=== PATIENT | female | born 1955 | race Asian ===

== ENCOUNTER 2019-06-13 20:15 | Inpatient (IN) | payer MEDICARE, MEDICAID ==
[~2019-06-13] VITALS: Ht 152.4 cm; Wt 61.7 kg
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
[2019-06-13 21:08] LABS: BASO % 0 % (0-3); EOS # 0.2 x10^3/uL (0.0-0.7); EOS % 2 % (0-3); HEMATOCRIT 39.3 % (36.0-47.0); HEMOGLOBIN 12.4 g/dL (12.0-15.5); LYMPH # 2.9 x10^3/uL (1.0-4.8); LYMPH % 28 % (24-48); MEAN CORPUSCULAR HEMOGLOBIN 26 pg (25-35); MEAN CORPUSCULAR HGB CONC 32 g/dL (31-37); MEAN CORPUSCULAR VOLUME 81 fL (79-100); MONO # 0.7 x10^3/uL (0.0-1.1); MONO % 6 % (0-9); NEUT # 6.5 x10^3uL (1.8-7.7); NEUT % 64 % (31-73); PLATELET COUNT 239 x10^3/uL (140-400); RED BLOOD COUNT 4.87 x10^6/uL (3.50-5.40); RED CELL DISTRIBUTION WIDTH 14.9 % (11.5-14.5); WHITE BLOOD COUNT 10.3 x10^3/uL (4.0-11.0)
[2019-06-13 21:26] LABS: ALBUMIN 3.5 g/dL (3.4-5.0); CALCIUM 8.9 mg/dL (8.5-10.1); CREATININE 0.7 mg/dL (0.6-1.0); GFR 84.2; MAGNESIUM 1.6 mg/dL (1.8-2.4); POTASSIUM 4.4 mmol/L (3.5-5.1); TOTAL BILIRUBIN 0.1 mg/dL (0.2-1.0); TOTAL PROTEIN 6.9 g/dL (6.4-8.2)
[2019-06-13 22:40] LABS: CLARITY,URINE HAZY; COLOR,URINE YELLOW; GLUCOSE,URINE NEG (NEG)
[2019-06-13 22:41] LABS: BACTERIA,URINE FEW /HPF (0-FEW); BILIRUBIN,URINE NEG (NEG); NITRITE,URINE NEG (NEG); RBC,URINE OCC /HPF (0-2); SQUAMOUS EPITHELIAL CELL,UR MOD /LPF; UROBILINOGEN,URINE 0.2 mg/dL (0.2 mg/dL)
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
[2019-06-14 00:23] VITALS: BP 135/91
[2019-06-14] MEDS ORDERED: METHYL SALICYLATE/MENTHOL TOPICAL OINTMENT 57GM TUBE. TP PRN (00:45)
[2019-06-14] MEDS ORDERED: MAG HYDROX/AL HYDROX/SIMETH 30 ML ORAL.SUSP PO PRN (00:45)
[2019-06-14] MEDS ORDERED: MAGNESIUM HYDROXIDE 2,400 MG/30 ML ORAL.SUSP. PO PRN (00:45)
[2019-06-14] MEDS ORDERED: SENNOSIDES/DOCUSATE 8.6/50MG TABLET. PO PRN (00:45)
[2019-06-14] MEDS ORDERED: BISACODYL TAB 5 MG TABLET.DR. PO PRN (00:45)
[2019-06-14] MEDS ORDERED: BISACODYL 10 MG SUPP.RECT RC PRN (00:45)
[2019-06-14] MEDS ORDERED: BISA5TAB4 PO (00:52)
[2019-06-14] MEDS ORDERED: TAMO20TA PO (00:52)
[2019-06-14] MEDS ORDERED: SERT50TA PO (00:52)
[2019-06-14] MEDS ORDERED: BISA10SU4 RC (00:52)
[2019-06-14] MEDS ORDERED: HYDR-2145 PO (00:52)
[2019-06-14] MEDS ORDERED: LISI40TA PO (00:52)
[2019-06-14] MEDS ORDERED: IBUP400T18 PO (00:52)
[2019-06-14] MEDS ORDERED: LATA2.5D3 RIGHTEYE (00:52)
[2019-06-14] MEDS ORDERED: SENN-142 PO (00:52)
[2019-06-14] MEDS ORDERED: AMLO5TAB10 PO (00:52)
[2019-06-14] MEDS ORDERED: ATOR10TA PO (00:52)
[2019-06-14] MEDS ORDERED: METF500T16 PO (00:52)
[2019-06-14] MEDS ORDERED: METO25TA2 PO (00:52)
[2019-06-14 05:48] VITALS: BP 137/84
[2019-06-14] MEDS: LISINOPRIL 20 MG TABLET PO SCH (08:38)
[2019-06-14] MEDS: SERTRALINE 25 MG TABLET. PO SCH (08:38)
[2019-06-14] MEDS: metFORMIN 500 MG TABLET PO SCH ×2 (08:38→17:31)
[2019-06-14] MEDS: amLODIPine BESYLATE 5 MG TABLET PO SCH (08:39)
[2019-06-14] MEDS: hydroCHLOROthiazide 25 MG TABLET PO SCH (08:39)
[2019-06-14] MEDS: METOPROLOL SUCC 24HR ER 25 MG TAB.ER.24H. PO SCH (08:39)
[2019-06-14] MEDS: TAMOXIFEN 10 MG TABLET PO SCH (09:14)
--- NOTE | 2019-06-14 10:53 | NUR ---
NURSING NOTES: Increased agitation and name calling with staff noted. Dr. Curiel called, received new order for Zyprexa PO 2.5mg PRN Q2h for psychosis and agitation. Not to exceed 10mg in 24 hours.
[2019-06-14] MEDS ORDERED: OLANZapine 2.5 MG TABLET PO PRN (11:00)
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
--- NOTE | 2019-06-14 15:11 | NUR ---
NURSING NOTE: PATIENT IN DINING ROOM AT TIME OF AM ASSESSMENT. PATIENT ALERT AND ORIENTED SELF ONLY, SPEECH CLEAR, ABLE TO MAKE NEEDS KNOWN. LCTA. PATIENT ON ROOM AIR. NO COUGH NOTED. BS ACTIVE X4 QUADRANTS. LAST BM: 06/13. PATIENT OFFERED NO COMPLAINTS. MEDICATIONS GIVEN WHOLE, TOLERATED WELL. MEDICATION COMPLIANT. BEHAVIORS NOTED IN PREVIOUS NOTE. WILL CONTINUE TO MONITOR.
[2019-06-14 16:09] VITALS: BP 73/61
--- NOTE | 2019-06-14 17:13 | NUR ---
NURSING NOTES: THIS NURSE SPOKE WITH DR. TSEPHENSON TODAY ABOUT PATIENT BEHAVIORS AND SLEEPING ABILITIES. NEW ORDERS RECEIVED FOR TRAZADONE 50MG HS WITH REPEAT X1. NO FURTHER CONCERNS AT THIS TIME. WILL CONTINUE TO MONITOR.
[2019-06-14] MEDS ORDERED: traZODone 50 MG TABLET. PO PRN (17:30)
[2019-06-14 19:40] VITALS: BP 99/62
[2019-06-14] MEDS: LATANOPROST 0.005% OPHTH SOLUTION 2.5ML BOTTLE. OD SCH (21:00)
[2019-06-14] MEDS: IBUPROFEN 400 MG TABLET. PO PRN (21:17)
[2019-06-14] MEDS: ATORVASTATIN CALCIUM 10 MG TABLET. PO SCH (21:17)
[2019-06-14] MEDS: traZODone 50 MG TABLET. PO SCH (21:17)
--- NOTE | 2019-06-14 21:25 | PDOC ---
Exam Note: Phillip Note: Please also refer to the separate dictated note~for this date of service dictated separately. Discussed the patient with Nursing staff reviewed the chart.~Reviewed interim history and current functioning. Reviewed vital signs,~Labs/ Radiology~and current medications noted below. Continue current treatment with the changes noted in the dictated addendum note Assessment: Vital Signs/I&O: Vital Signs Date Time Temp Pulse Resp B/P (MAP) Pulse Ox O2 Delivery O2 Flow Rate FiO2 06/14/19 19:40 92 20 99/62 (74) 98 06/14/19 16:09 97.2 06/13/19 20:30 Room Air I & O 06/13/19 06/13/19 06/14/19 15:00 23:00 07:00 Intake Total 0 ml Balance 0 ml Labs: Laboratory Tests Test 06/13/19 22:03 06/14/19 07:49 06/14/19 12:00 06/14/19 16:57 Urine Collection Type Unknown Urine Color Yellow Urine Clarity Hazy Urine pH 5.5 Urine Specific [place] 1.020 Urine Protein Neg (NEG-TRACE) Urine Glucose (UA) Neg mg/dL (NEG) Urine Ketones (Stick) Neg mg/dL (NEG) Urine Blood Neg (NEG) Urine Nitrite Neg (NEG) Urine Bilirubin Neg (NEG) Urine Urobilinogen Dipstick 0.2 mg/dL (0.2 mg/dL) Urine Leukocyte Esterase Neg (NEG) Urine RBC Occ /HPF (0-2) Urine WBC 1-4 /HPF (0-4) Urine Squamous Epithelial Cells Mod /LPF Urine Transitional Epithelial Cells Few /LPF Urine Bacteria Few /HPF (0-FEW) Glucose (Fingerstick) 148 mg/dL (70-99) H 142 mg/dL (70-99) H 144 mg/dL (70-99) H Current Medications: Meds: Current Medications Medications (Trade) Dose Ordered Sig/Antoinette Route PRN Reason Start Time Stop Time Status Last Admin Dose Admin Amlodipine Besylate (Norvasc) 5 mg DAILY PO 06/14/19 09:00 06/14/19 08:39 Atorvastatin Calcium (Lipitor) 10 mg HS PO 06/14/19 21:00 06/14/19 21:17 Hydrochlorothiazide (Hydrodiuril) 25 mg DAILY PO 06/14/19 09:00 06/14/19 08:39 Ibuprofen (Motrin) 400 mg PRN Q8HRS PRN PO PAIN 06/14/19 00:45 06/14/19 21:17 Metformin HCl (Glucophage) 500 mg BIDWMEALS PO 06/14/19 08:00 06/14/19 17:31 Metoprolol Succinate (Toprol Xl) 25 mg DAILY PO 06/14/19 09:00 06/14/19 08:39 Sertraline HCl (Zoloft) 75 mg DAILY PO 06/14/19 09:00 06/14/19 08:38 Lisinopril (Prinivil) 40 mg DAILY PO 06/14/19 09:00 06/14/19 08:38 Tamoxifen Citrate (Nolvadex) 20 mg DAILY PO 06/14/19 09:00 06/14/19 09:14 Olanzapine (ZyPREXA) 2.5 mg PRN Q2HR PRN PO psychosis, agitation 06/14/19 11:00 06/14/19 11:02 Trazodone HCl (Desyrel) 50 mg QHS PO 06/14/19 21:00 06/14/19 21:17 I have reviewed the current psychotropics carefully including drug interactions. Risk benefit ratio favors no change other than as noted in my dictated progress note. 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
--- NOTE | 2019-06-14 23:52 | NUR ---
Pt has been wandering around the unit propelling herself in her wheelchair. Pt calm and compliant with HS medications. Pt stated leg pain 11/28. PRN Ibuprofen administered. A/O name, and date. At 2350, pt woke up to use the restroom. Pt very non compliant with transferring, refusing to stand with 2 person assist and attempting to put herself on the floor. Pt currently laying in bed. Will continue to monitor.
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
[2019-06-15 05:54] VITALS: BP 97/62
[2019-06-15 06:51] LABS: BASO # 0.1 x10^3/uL (0.0-0.2); BASO % 1 % (0-3); EOS # 0.2 x10^3/uL (0.0-0.7); EOS % 2 % (0-3); HEMATOCRIT 36.9 % (36.0-47.0); HEMOGLOBIN 11.6 g/dL (12.0-15.5); LYMPH # 2.9 x10^3/uL (1.0-4.8); LYMPH % 32 % (24-48); MEAN CORPUSCULAR HEMOGLOBIN 25 pg (25-35); MEAN CORPUSCULAR HGB CONC 31 g/dL (31-37); MEAN CORPUSCULAR VOLUME 81 fL (79-100); MONO # 0.6 x10^3/uL (0.0-1.1); MONO % 6 % (0-9); NEUT # 5.3 x10^3uL (1.8-7.7); NEUT % 59 % (31-73); PLATELET COUNT 213 x10^3/uL (140-400); RED BLOOD COUNT 4.57 x10^6/uL (3.50-5.40); RED CELL DISTRIBUTION WIDTH 14.8 % (11.5-14.5); WHITE BLOOD COUNT 9.1 x10^3/uL (4.0-11.0)
[2019-06-15 07:07] LABS: ALBUMIN 3.1 g/dL (3.4-5.0); CALCIUM 8.4 mg/dL (8.5-10.1); CREATININE 0.8 mg/dL (0.6-1.0); GFR 72.2; POTASSIUM 4.1 mmol/L (3.5-5.1); TOTAL BILIRUBIN 0.2 mg/dL (0.2-1.0); TOTAL PROTEIN 6.3 g/dL (6.4-8.2)
[2019-06-15] MEDS: SERTRALINE 25 MG TABLET. PO SCH (09:56)
[2019-06-15] MEDS: LISINOPRIL 20 MG TABLET PO SCH (09:56)
[2019-06-15] MEDS: hydroCHLOROthiazide 25 MG TABLET PO SCH (09:57)
[2019-06-15] MEDS: amLODIPine BESYLATE 5 MG TABLET PO SCH (09:57)
[2019-06-15] MEDS: METOPROLOL SUCC 24HR ER 25 MG TAB.ER.24H. PO SCH (09:57)
[2019-06-15] MEDS: TAMOXIFEN 10 MG TABLET PO SCH (09:59)
[2019-06-15] MEDS: metFORMIN 500 MG TABLET PO SCH ×2 (10:01→17:34)
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
--- NOTE | 2019-06-15 14:35 | RAD ---
EXAM: CT Head without IV contrast INDICATION: Altered mental status. Patient is not sure when or why she had surgery. TECHNIQUE: Multi-detector row CT images were obtained of the head without the use of IV contrast. All CT scans performed at this facility utilize dose optimization techniques as appropriate to the exam, including the following: Automated exposure control and adjustment of the mA and/or KV according to patient size (this includes techniques or standardized protocols for targeted exams where dose is indication/reason for exam). COMPARISON: None available FINDINGS: BRAIN PARENCHYMA: Encephalomalacia in the right temporal lobe and in the inferior left temporal lobe are present in the setting of generalized parenchymal volume loss and white matter low density compatible chronic ischemic microvascular change, most conspicuous in the right frontal lobe. No acute hemorrhage, evidence of an acute infarct or mass lesion/mass effect. There does appear to be a left through the right temporal lobe and stenting to the lateral horn right lateral ventricle that may have tsang matter along its margins. 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 VENTRICLES & EXTRA-AXIAL SPACES: Ventricles are enlarged in proportion to the degree of parenchymal volume loss on the right parietal approach ventriculostomy catheter is present, crossing midline to abut the left tsang nuclei near the caudothalamic groove. Basilar cisterns are patent. A left frontal 5 mm deep isodense fluid collection over the left frontal lobe is present, compatible with a subacute subdural hematoma. ORBITS: Orbital contents are unremarkable. SINUSES: Visualized paranasal sinuses and mastoid air cells are clear. OSSEOUS & SOFT TISSUES: There are surgical changes from a right pterional craniotomy with surgical material present along the right sphenoid wing lateral to the cavernous carotid artery. IMPRESSION: Extensive postoperative changes intracranially compatible with prior tissue debulking in the right anterior temporal lobe and placement of a [employer] shunt catheter. There is a small, 5 mm deep left frontal subacute subdural hematoma. No significant mass effect and no acute intracranial findings otherwise noted. Electronically signed by: Susan Robbins MD (06/15/2019 2:32 PM) [facility]
[2019-06-15 14:52] LABS: THYROID STIM HORMONE (TSH) 1.255 uIU/mL (0.358-3.740)
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
[2019-06-15 16:26] VITALS: BP 88/53
--- NOTE | 2019-06-15 17:05 | NUR ---
Patient has been cooperative and compliant with her medications. This morning she became upset because she stated her hair was "dripping wet". She had just had a shower. Nurse dried patients hair with a towel, patient continued to insist that it was "dripping wet". Hair was not dripping wet. Patient continued to insist, eventually nurse asked PV INSTALLER TECH to blow-dry patients hair. Patient was then upset that her hair was "blowing around". Patient interactive with staff and peers. She has had no combative behaviors or name calling towards peers or staff.
--- NOTE | 2019-06-15 19:48 | NUR ---
nurse called patients ANTONIETTAPAOLO Haile at [phone] Curiel. 1. Did patients bi-polar episodes/diagnosis start before or after her nontraumatic subarachnoid hemorrhage? 2. When did the nontraumatic subarachnoid hemorrhage happen? (year) KILEY did not answer the phone, message was left asking her to call this nurse on Friday between 7am-7pm.
[2019-06-15] MEDS: HYDROCORTISONE 1% LOTION BOTTLE. TP SCH (20:48)
[2019-06-15] MEDS: ATORVASTATIN CALCIUM 10 MG TABLET. PO SCH (20:49)
[2019-06-15] MEDS: traZODone 50 MG TABLET. PO SCH (20:49)
[2019-06-15] MEDS: LATANOPROST 0.005% OPHTH SOLUTION 2.5ML BOTTLE. OD SCH (21:00)
--- NOTE | 2019-06-15 21:21 | PDOC ---
Exam Note: Phillip Note: Please also refer to the separate dictated note~for this date of service dictated separately.~Patient seen individually. Discussed the patient with Nursing staff reviewed the chart.~Reviewed interim history and current functioning. Reviewed vital signs,~Labs/ Radiology~and current medications noted below. Continue current treatment with the changes noted in the dictated addendum note Assessment: Vital Signs/I&O: Vital Signs Date Time Temp Pulse Resp B/P (MAP) Pulse Ox O2 Delivery O2 Flow Rate FiO2 06/15/19 16:26 97.5 94 16 88/53 (65) 95 06/13/19 20:30 Room Air I & O 06/14/19 06/14/19 06/15/19 15:00 23:00 07:00 Intake Total 840 ml 360 ml 120 ml Balance 840 ml 360 ml 120 ml Labs: Laboratory Tests Test 06/15/19 06:30 White Blood Count 9.1 x10^3/uL (4.0-11.0) Red Blood Count 4.57 x10^6/uL (3.50-5.40) Hemoglobin 11.6 g/dL (12.0-15.5) L Hematocrit 36.9 % (36.0-47.0) Mean Corpuscular Volume 81 fL (79-100) Mean Corpuscular Hemoglobin 25 pg (25-35) Mean Corpuscular Hemoglobin Concent 31 g/dL (31-37) Red Cell Distribution Width 14.8 % (11.5-14.5) H Platelet Count 213 x10^3/uL (140-400) Neutrophils (%) (Auto) 59 % (31-73) Lymphocytes (%) (Auto) 32 % (24-48) Monocytes (%) (Auto) 6 % (0-9) Eosinophils (%) (Auto) 2 % (0-3) Basophils (%) (Auto) 1 % (0-3) Neutrophils # (Auto) 5.3 x10^3uL (1.8-7.7) Lymphocytes # (Auto) 2.9 x10^3/uL (1.0-4.8) Monocytes # (Auto) 0.6 x10^3/uL (0.0-1.1) Eosinophils # (Auto) 0.2 x10^3/uL (0.0-0.7) Basophils # (Auto) 0.1 x10^3/uL (0.0-0.2) Sodium Level 141 mmol/L (136-145) Potassium Level 4.1 mmol/L (3.5-5.1) Chloride Level 105 mmol/L (98-107) Carbon Dioxide Level 27 mmol/L (21-32) Anion Gap 9 (6-14) Blood Urea Nitrogen 26 mg/dL (7-20) H Creatinine 0.8 mg/dL (0.6-1.0) Estimated GFR (Cockcroft-Gault) 72.2 BUN/Creatinine Ratio 33 (6-20) H Glucose Level 144 mg/dL (70-99) H Calcium Level 8.4 mg/dL (8.5-10.1) L Iron Level 46 ug/dL (50-170) L Total Iron Binding Capacity 356 ug/dL (250-450) Iron Saturation 13 % (15-34) L Total Bilirubin 0.2 mg/dL (0.2-1.0) Aspartate Amino Transferase (AST) 17 U/L (15-37) Alanine Aminotransferase (ALT) 27 U/L (14-59) Alkaline Phosphatase 56 U/L (46-116) Total Protein 6.3 g/dL (6.4-8.2) L Albumin 3.1 g/dL (3.4-5.0) L Albumin/Globulin Ratio 1.0 (1.0-1.7) Triglycerides Level 101 mg/dL (0-150) Cholesterol Level 113 mg/dL (0-200) LDL Cholesterol, Calculated 53 mg/dL (0-100) VLDL Cholesterol, Calculated 20 mg/dL (0-40) Non-HDL Cholesterol Calculated 73 mg/dL (0-129) HDL Cholesterol 40 mg/dL (40-60) Cholesterol/HDL Ratio 2.0 Vitamin B12 Level 215 pg/mL (247-911) L 25-Hydroxy Vitamin D Total 13.5 ng/mL (30-100) L Thyroid Stimulating Hormone (TSH) 1.255 uIU/mL (0.358-3.740) Treponema pallidum Antibody Nonreactive (Nonreactive) Current Medications: Meds: Current Medications Medications (Trade) Dose Ordered Sig/Antoinette Route PRN Reason Start Time Stop Time Status Last Admin Dose Admin Hydrocortisone (Cortizone-10) 1 ismael TID TP 06/15/19 21:00 06/15/19 20:48 I have reviewed the current psychotropics carefully including drug interactions. Risk benefit ratio favors no change other than as noted in my dictated progress note. 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
--- NOTE | 2019-06-15 22:22 | EKG ---
[address] [address] Test Date: 2019-06-15 Test Time: 22:01:50 Pat Name: KIMANI LIN Department: Room: Gender: F Leasing Consultant: : 1955 Requested By: ZE TAVERAS Order Number: [id number] Reading MD: Measurements Intervals [place] Rate: 91 P: 51 SC: 150 QRS: 27 QRSD: 82 T: 103 QT: 374 QTc: 462 Interpretive Statements SINUS RHYTHM ST & T ABNORMALITY, CONSIDER HIGH LATERAL ISCHEMIA OR LEFT VENTRICULAR STRAIN ABNORMAL ECG RI6.02 No previous ECG available for comparison
[2019-06-15 23:06] LABS: THYROXINE 6.1 ug/dL (4.5-12.0)
--- NOTE | 2019-06-16 00:06 | NUR ---
Nursing Note the patient was located in the day room and hallways for her assessment and medication pass. The patient was often very disorganized but was generally compliant. The patient took her medication whole. The patient is currently sleeping in her room.
[2019-06-16 01:06] LABS: HEMOGLOBIN A1C 7.8 % (4.8-5.6)
[2019-06-16 05:44] VITALS: BP 105/72
[2019-06-16] MEDS: METOPROLOL SUCC 24HR ER 25 MG TAB.ER.24H. PO SCH (09:41)
[2019-06-16] MEDS: SERTRALINE 25 MG TABLET. PO SCH (09:42)
[2019-06-16] MEDS: hydroCHLOROthiazide 25 MG TABLET PO SCH (09:42)
[2019-06-16] MEDS: TAMOXIFEN 10 MG TABLET PO SCH (09:42)
[2019-06-16] MEDS: HYDROCORTISONE 1% LOTION BOTTLE. TP SCH ×3 (09:43→21:02)
[2019-06-16] MEDS: amLODIPine BESYLATE 5 MG TABLET PO SCH (09:43)
[2019-06-16] MEDS: LISINOPRIL 20 MG TABLET PO SCH (09:43)
[2019-06-16] MEDS: metFORMIN 500 MG TABLET PO SCH ×2 (09:43→17:24)
--- NOTE | 2019-06-16 12:27 | NUR ---
Patient had returned to bed after breakfast. She refused to sit up to take medications. Nurse put the bed into an upright/chair position. Patient was angry but took her medications. Patient has not been aggressive towards peers or staff. Patient got up for lunch and appeared to be in a better mood at that time.
--- NOTE | 2019-06-16 15:23 | NUR ---
Activity Therapy Assessment Completed based on observation, notes, and discussions with staff; Pt. sleeping during both attempts to assess (1000 and 1445). Pt. uses a wheelchair to ambulate and requires assistance with ADLs and transfers. Pt. speaks in full, clear sentences and is able to express her needs clearly. Pt. is from [facility] where she lives alone; her sister in law, Royce, is her DPOA. Pt. is originally from [place] and moved to [place] with her , who a few years ago. Pt. has a history of strokes, polio, and was in a coma for many months a few years back. Pt. 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 Pt. enjoys reading, watching TV- specifically drama programs, and cooking. Pt. sees her nieces (Jessica and Lisandra) often as well as her tntxlz-be-bfw. Pt. is disorganized, aware that she is not home but seems confused on where she is and is unable to communicate what brought her to the unit. Pt. oysterman memory is mostly in tact but her short term is limited. Pt. benefits from reminders and redirection often. Pt. has been demanding of staff since admission and difficult to redirect at times. Pt. has also been resistant to cares and meds at times. Pt. is sleepy often and therefore around group only a few times. Pt. has participated well in one group thus far and demonstrated she is able to follow directions and engage in group activities. Initial goal aimed to increase engagement and socialization: Pt. will participate in three Activity Therapy groups per week.
[2019-06-16 16:13] VITALS: BP 90/51
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
[2019-06-16] MEDS: DIVALPROEX 125 MG CAP.SPRINK PO SCH (17:27)
[2019-06-16] MEDS: traZODone 50 MG TABLET. PO SCH (20:57)
[2019-06-16] MEDS: ATORVASTATIN CALCIUM 10 MG TABLET. PO SCH (20:57)
[2019-06-16] MEDS: LATANOPROST 0.005% OPHTH SOLUTION 2.5ML BOTTLE. OD SCH (21:00)
--- NOTE | 2019-06-16 21:21 | PDOC ---
Exam Note: Phillip Note: Please also refer to the separate dictated note~for this date of service dictated separately.~Patient seen individually. Discussed the patient with Nursing staff reviewed the chart.~Reviewed interim history and current functioning. Reviewed vital signs,~Labs/ Radiology~and current medications noted below. Continue current treatment with the changes noted in the dictated addendum note Assessment: Vital Signs/I&O: Vital Signs Date Time Temp Pulse Resp B/P (MAP) Pulse Ox O2 Delivery O2 Flow Rate FiO2 06/16/19 16:13 98.6 91 16 90/51 (64) 94 06/13/19 20:30 Room Air I & O 06/15/19 06/15/19 06/16/19 15:00 23:00 07:00 Intake Total 720 ml 480 ml 240 ml Balance 720 ml 480 ml 240 ml Labs: Laboratory Tests Test 06/16/19 07:18 Glucose (Fingerstick) 128 mg/dL (70-99) H Current Medications: Meds: Current Medications Medications (Trade) Dose Ordered Sig/Antoinette Route PRN Reason Start Time Stop Time Status Last Admin Dose Admin Divalproex Sodium (Depakote Sprinkles) 125 mg BID@0900,1700 PO 06/16/19 18:00 06/16/19 17:27 I have reviewed the current psychotropics carefully including drug interactions. Risk benefit ratio favors no change other than as noted in my dictated progress note. 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
--- NOTE | 2019-06-16 21:54 | PN ---
DATE: 06/15/2019 PSYCHIATRIC PROGRESS NOTE This late entry, 06/15, covers the elements not covered in my initial note. SUBJECTIVE: I met with the patient on the evening of 06/15. Per MARISOL Dick, the patient slept 4 hours previous night. She has been quite obsessive about her hair being wet using a blower and then frustrated about this after shower. A CT head shows encephalomalacia right temporal lobe, inferior left temporal lobe and generalized parenchymal volume loss, white matter low density compatible chronic ischemic microvascular changes most conspicuous in the right frontal lobe. No acute hemorrhage or acute infarct or mass lesion noted. There does appear to be a left through the right temporal lobe and stenting to the lateral horn right lateral ventricle may have tsang matter along its margins. 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 Ventricles are enlarged and there is a ventriculostomy catheter present crossing the midline and there is a possible subacute subdural hematoma, left frontal 5 mm deep. Surgical changes from a right craniotomy, overall extensive postoperative changes compatible with prior tissue debulking in the right anterior temporal lobe placement of MANAGER FOOD SAFETY shunt and a subacute subdural hematoma. I reviewed the patient's history with her at length. She denies any premorbid psychiatric symptoms of bipolar disorder, but we will have to gather further historical information from her family. She states her family is in [facility] that is where she was born and raised and then at age 18 she came over to the . Apparently, there is a xkabyb-xa-kwd in [place] at least that is what the intake paper said and the patient deny she has any relative in [place]. She does have some cognitive deficits, but is more oriented than was evident initially. REVIEW OF SYSTEMS: Ambulation impaired, in wheelchair. No CV, , pulmonary, eye systems symptoms on review. MENTAL STATUS EXAM: Oriented to herself, situation. Speech has some latency, a little rapid at times. Poor social skills consistent with a frontal lobe damage. Abstraction fair, computation impaired, language function intact, attention span short. Mood and affect somewhat labile. LABORATORY DATA: Reviewed. IMPRESSION: Major neurocognitive disorder, early multifactorial with predominant frontal lobe deficits; impulse control disorder, history of bipolar disorder, unspecified; anxiety disorder, unspecified. Rest unchanged. PLAN: From a psychiatric standpoint, we will continue Zoloft 75 mg a day. She is on trazodone and Zyprexa p.r.n. We need to gather further historical information about bipolar disorder and if this is evident, may consider treatment on Depakote as a mood stabilizer, which should help her impulse control as well. MAN Darby STEPHENSON MD DR: JORDAN/ember JOB#: [id number] / [id number]
--- NOTE | 2019-06-17 04:35 | NUR ---
Last evening pt was active on unit and social with peers and staff. She took her meds whole without difficulty and has been peasant and cooperative. Since going to bed she has slept well. No behaviors this shift.
[2019-06-17 05:42] VITALS: BP 109/74
[2019-06-17] MEDS: HYDROCORTISONE 1% LOTION BOTTLE. TP SCH ×3 (06:00→20:31)
[2019-06-17] MEDS: metFORMIN 500 MG TABLET PO SCH ×2 (08:17→17:52)
[2019-06-17] MEDS: DIVALPROEX 125 MG CAP.SPRINK PO SCH ×2 (08:17→17:52)
[2019-06-17] MEDS: METOPROLOL SUCC 24HR ER 25 MG TAB.ER.24H. PO SCH (08:17)
[2019-06-17] MEDS: hydroCHLOROthiazide 25 MG TABLET PO SCH (08:17)
[2019-06-17] MEDS: LISINOPRIL 20 MG TABLET PO SCH (08:18)
[2019-06-17] MEDS: amLODIPine BESYLATE 5 MG TABLET PO SCH (08:18)
[2019-06-17] MEDS: SERTRALINE 25 MG TABLET. PO SCH (08:18)
[2019-06-17] MEDS: TAMOXIFEN 10 MG TABLET PO SCH (08:20)
[2019-06-17] MEDS: NYSTATIN TOPICAL POWDER 15GM BOTTLE. TP SCH ×2 (09:42→20:31)
--- NOTE | 2019-06-17 10:52 | NUR ---
WEEKLY ACTIVITY THERAPY NOTE Date of Admission: 06/13/2019 Date of AT Assessment: 06/16/2019 Goal aimed: to increase engagement and socialization Initial goal: Pt. will participate in three Activity Therapy groups per week. Weekly progress towards goal: goal evaluation begins next week Group participation level: 2 mod Weekly highlights: exercise and picture puzzles Friday morning and leisure discussion Friday afternoon Behaviors observed: sleepy, demanding of staff, limited group engagement- no participation Friday and Friday, wandering/ leaves group and does not return Plan: no change to goal Beneficial adaptations: direct prompting
--- NOTE | 2019-06-17 11:09 | NUR ---
LUPE contacted pt. hxpvik-pt-wdr, Royce, for treatment team. LUPE updated INDIRA Meléndez at [facility], on pt. progress and tentative discharge for the end of next week.
--- NOTE | 2019-06-17 15:45 | NUR ---
Patient can be very demanding when she does not get what she wants. At breakfast she was compliant with her medications. She spilled her coffee and nurse wiped the table off. Patient then asked for a napkin as she had used hers to clean up part of the coffee. Nurse brought patient several paper towels from the wall dispenser. Nurse then turned attention back to peer that was being assessed. Patient then flagged down Alla, the cloth shrinker, stating that the paper towels were not soft. Alla got some more paper towels for patient and wet them so they would be softer. Patient was not happy with that either and told Alla that our towels are too rough. She demanded a new napkin and was informed that we do not have extra napkins in the dining room, just the ones that come on the trays. In the day room BEREAVEMENT COUNSELOR's asked patient if she was ready to take her shower. Patient became very angry and indignent and stated that she WOULD NOT be washing her hair IF she took a shower. She then called the BEREAVEMENT COUNSELOR's "swine" and "bloody idiots". She eventually calmed down and took a shower but refused to wash her hair. By lunch time she was in a better mood. Patient uses a wheel chair to ambulate. Patient is a 2 person transfer.
[2019-06-17 15:51] VITALS: BP 100/63
[2019-06-17] MEDS: ATORVASTATIN CALCIUM 10 MG TABLET. PO SCH (20:30)
[2019-06-17] MEDS: traZODone 50 MG TABLET. PO SCH (20:30)
[2019-06-17] MEDS: LATANOPROST 0.005% OPHTH SOLUTION 2.5ML BOTTLE. OD SCH (20:31)
--- NOTE | 2019-06-17 21:25 | PDOC ---
Exam Note: Phillip Note: Please also refer to the separate dictated note~for this date of service dictated separately.~Patient seen individually. Discussed the patient with Nursing staff reviewed the chart.~Reviewed interim history and current functioning. Reviewed vital signs,~Labs/ Radiology~and current medications noted below. Continue current treatment with the changes noted in the dictated addendum note Assessment: Vital Signs/I&O: Vital Signs Date Time Temp Pulse Resp B/P (MAP) Pulse Ox O2 Delivery O2 Flow Rate FiO2 06/17/19 15:51 97.4 81 18 100/63 (75) 98 06/17/19 05:42 Room Air I & O 06/16/19 06/16/19 06/17/19 15:00 23:00 07:00 Intake Total 960 ml 240 ml 360 ml Balance 960 ml 240 ml 360 ml Labs: Laboratory Tests Test 06/17/19 07:39 Glucose (Fingerstick) 139 mg/dL (70-99) H Current Medications: Meds: Current Medications Medications (Trade) Dose Ordered Sig/Antoinette Route PRN Reason Start Time Stop Time Status Last Admin Dose Admin Nystatin (Nystop) 1 ismael BID TP 06/17/19 09:00 06/17/19 20:31 I have reviewed the current psychotropics carefully including drug interactions. Risk benefit ratio favors no change other than as noted in my dictated progress note. 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
[2019-06-18 06:41] VITALS: BP 123/78
[2019-06-18] MEDS: metFORMIN 500 MG TABLET PO SCH ×2 (09:08→17:17)
[2019-06-18] MEDS: TAMOXIFEN 10 MG TABLET PO SCH (09:09)
[2019-06-18] MEDS: METOPROLOL SUCC 24HR ER 25 MG TAB.ER.24H. PO SCH (09:11)
[2019-06-18] MEDS: SERTRALINE 25 MG TABLET. PO SCH (09:12)
[2019-06-18] MEDS: hydroCHLOROthiazide 25 MG TABLET PO SCH (09:12)
[2019-06-18] MEDS: LISINOPRIL 20 MG TABLET PO SCH (09:12)
[2019-06-18] MEDS: amLODIPine BESYLATE 5 MG TABLET PO SCH (09:12)
[2019-06-18] MEDS: NYSTATIN TOPICAL POWDER 15GM BOTTLE. TP SCH ×2 (09:13→20:15)
[2019-06-18] MEDS: HYDROCORTISONE 1% LOTION BOTTLE. TP SCH ×3 (09:13→20:15)
[2019-06-18] MEDS: DIVALPROEX 125 MG CAP.SPRINK PO SCH ×2 (09:13→17:17)
[2019-06-18 16:29] VITALS: BP 105/75
--- NOTE | 2019-06-18 17:44 | NUR ---
Pt in day room for meds and assessment. Pt was calm and compliant, pleasant and interactive. No negative behavior noted this shift.
--- NOTE | 2019-06-18 19:05 | PN ---
DATE: 06/17/2019 PSYCHIATRIC PROGRESS NOTE This late entry, 06/17, covers the elements not covered in my initial note. SUBJECTIVE: I met with the patient on the evening of 06/17. The patient was staffed at a treatment team meeting with the entire team and her [id number], Royce, who is a nephrology social worker, attended the conference. Reviewed the history at length again including subarachnoid hemorrhage 2007, good functioning prior to that. No prior diagnosis of bipolar disorder. Appetite 75-100%, sleeping average 7 hours. Following the hemorrhage, the patient was in a coma for an extended period of time. She will need [facility] care, physical therapy post-discharge. REVIEW OF SYSTEMS: Ambulation impaired, in wheelchair. No CV, , pulmonary, eye systems symptoms on review. MENTAL STATUS EXAM: Oriented to herself and situation. Speech is coherent, abstraction fair, computation impaired, language function intact, attention span short. Mood and affect still somewhat dysphoric, anxious. LABORATORY DATA: Reviewed. IMPRESSION: Unchanged from initial note. PLAN: No change from initial note. Depakote was initiated for her mood lability. MAN Darby STEPHENSON MD DR: JORDAN/ember JOB#: [id number] / [id number]
--- NOTE | 2019-06-18 19:09 | PN ---
DATE: 06/16/2019 PSYCHIATRIC PROGRESS NOTE This late entry 06/16/2019 covers elements not covered in my initial note. SUBJECTIVE: I met with the patient evening of 06/16/2019. Per MARISOL Dick, the patient slept 5 hours previous night. She was in bed after breakfast, somewhat grumpy per nursing report, tired, restless, anxious in the evening. We received information from her family she had a hemorrhagic stroke in 2007. 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 Apparently, she was hypertensive and due to lack of money was sharing antihypertensive medications with her , resulting in the above in addition to a possible aneurysm. She was born and raised in [place] to [facility] [place] [facility] parents and came to the [place] at age 18. She has apparently shunned by the family for the poliomyelitis prior to that. REVIEW OF SYSTEMS: Ambulation impaired, in wheelchair. No CV, , pulmonary, eye system symptoms on review. MENTAL STATUS EXAM: Oriented to herself and situation. Speech has some latency, coherent. Abstraction fair, computation impaired, language function intact, attention span short. Mood and affect, lability is improved. LABORATORY DATA: Reviewed. IMPRESSION: Major depressive disorder, impulse control disorder; anxiety disorder, unspecified; status post hemorrhagic stroke. PLAN: Given her mood lability, anxiety, irritability consequent to the CVA, would start Depakote Sprinkles 125 mg 9 a.m., 5:00 p.m. Check CBC, CMP, valproic acid level in 3 days. Continue Zoloft 75 mg a day, Zyprexa p.r.n., trazodone at bedtime p.r.n. insomnia, may need to increase Zoloft in due course. OSKAR STEPHENSON MD DR: JORDAN/ember JOB#: [id number] / [id number]
[2019-06-18] MEDS: LATANOPROST 0.005% OPHTH SOLUTION 2.5ML BOTTLE. OD SCH (20:14)
[2019-06-18] MEDS: traZODone 50 MG TABLET. PO SCH (20:14)
[2019-06-18] MEDS: ATORVASTATIN CALCIUM 10 MG TABLET. PO SCH (20:14)
--- NOTE | 2019-06-18 21:24 | PDOC ---
Exam Note: Phillip Note: Please also refer to the separate dictated note~for this date of service dictated separately.~Patient seen individually. Discussed the patient with Nursing staff reviewed the chart.~Reviewed interim history and current functioning. Reviewed vital signs,~Labs/ Radiology~and current medications noted below. Continue current treatment with the changes noted in the dictated addendum note Assessment: Vital Signs/I&O: Vital Signs Date Time Temp Pulse Resp B/P (MAP) Pulse Ox O2 Delivery O2 Flow Rate FiO2 06/18/19 16:29 98.3 98 20 105/75 (85) 97 06/17/19 05:42 Room Air I & O 06/17/19 06/17/19 06/18/19 15:00 23:00 07:00 Intake Total 960 ml 480 ml 240 ml Balance 960 ml 480 ml 240 ml Labs: Laboratory Tests Test 06/18/19 08:08 Glucose (Fingerstick) 132 mg/dL (70-99) H Current Medications: I have reviewed the current psychotropics carefully including drug interactions. Risk benefit ratio favors no change other than as noted in my dictated progress note. 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
--- NOTE | 2019-06-18 21:45 | NUR ---
Pt in day room and complaining of L foot ankle and leg pain. Informed by staff that pt had recently been found on floor in her bathroom. Pt said she was getting off toilet and slipped to floor. PRN tylenol given. No obvious injury, no swelling. Pt taken to bed feet elevated and ice bag provided.
[2019-06-18] MEDS: ACETAMINOPHEN 325 MG TABLET PO PRN (21:57)
[2019-06-19] MEDS: IBUPROFEN 400 MG TABLET. PO PRN (03:39)
--- NOTE | 2019-06-19 04:45 | RAD ---
Three-view left ankle and three-view left foot dated 06/19/2019. No comparison available. CLINICAL INDICATION: Pain after fall. FINDINGS: 3 views left ankle show normal bony alignment. No displaced fracture. There is been lateral plate and screw fixation of the distal fibula with syndesmotic screws proximally and distally. There is generalized osteopenia. Mild degenerative change of the tibiotalar joint. No new fracture or malalignment. Diffuse soft tissue swelling. 3 views of left foot show normal bony alignment. No displaced fracture. There is fusion at the posterior subtalar joint with pes planus deformity. Generalized osteopenia. Mild degenerative changes of the Lisfranc joints and interphalangeal joints. Deformity of the fourth metacarpal neck healed fracture. IMPRESSION: 1. No evidence of acute fracture or malalignment. 2. Old healed fracture of the distal fibula status post ORIF. 3. There is also probable old healed fracture of the fourth metacarpal neck. 4. Degenerative changes as described above. There is fusion of the posterior subtalar joint with pes planus deformity. 5. Generalized osteopenia. Electronically signed by: Kenneth Ramírez MD (06/19/2019 4:42 AM) [id number]
[2019-06-19] MEDS: ACETAMINOPHEN 325 MG TABLET PO PRN ×2 (05:38→20:08)
--- NOTE | 2019-06-19 05:47 | NUR ---
Prn tylenol given for c/o pain. Dr Vee informed of pt fall no FX and pain, see orders.
[2019-06-19 06:38] VITALS: BP 146/70
[2019-06-19] MEDS: hydroCHLOROthiazide 25 MG TABLET PO SCH (09:48)
[2019-06-19] MEDS: metFORMIN 500 MG TABLET PO SCH ×2 (09:48→17:25)
[2019-06-19] MEDS: DIVALPROEX 125 MG CAP.SPRINK PO SCH ×2 (09:48→17:25)
[2019-06-19] MEDS: TAMOXIFEN 10 MG TABLET PO SCH (09:49)
[2019-06-19] MEDS: amLODIPine BESYLATE 5 MG TABLET PO SCH (09:49)
[2019-06-19] MEDS: METOPROLOL SUCC 24HR ER 25 MG TAB.ER.24H. PO SCH (09:50)
[2019-06-19] MEDS: SERTRALINE 25 MG TABLET. PO SCH (09:50)
[2019-06-19] MEDS: LISINOPRIL 20 MG TABLET PO SCH (09:50)
[2019-06-19] MEDS: NYSTATIN TOPICAL POWDER 15GM BOTTLE. TP SCH ×2 (09:51→20:08)
[2019-06-19] MEDS: HYDROCORTISONE 1% LOTION BOTTLE. TP SCH ×3 (09:51→20:08)
--- NOTE | 2019-06-19 13:29 | NUR ---
Pt slept in this am. Pt is med compliant. No agitation, no aggression, no hallucinations, no delusions. She is compliant with her medication and assessment.
[2019-06-19 16:08] VITALS: BP 101/62
[2019-06-19] MEDS: CHOLECALCIFEROL (VITAMIN D3) 50,000 UNIT CAPSULE PO SCH (17:25)
[2019-06-19] MEDS: traZODone 50 MG TABLET. PO SCH (20:07)
[2019-06-19] MEDS: ATORVASTATIN CALCIUM 10 MG TABLET. PO SCH (20:08)
[2019-06-19] MEDS: HYDROcodone/APAP 5/325MG 1 TAB TABLET PO PRN (20:08)
[2019-06-19] MEDS: LATANOPROST 0.005% OPHTH SOLUTION 2.5ML BOTTLE. OD SCH (20:08)
--- NOTE | 2019-06-19 21:24 | PDOC ---
Exam Note: Phillip Note: Please also refer to the separate dictated note~for this date of service dictated separately.~Patient seen individually. Discussed the patient with Nursing staff reviewed the chart.~Reviewed interim history and current functioning. Reviewed vital signs,~Labs/ Radiology~and current medications noted below. Continue current treatment with the changes noted in the dictated addendum note Assessment: Vital Signs/I&O: Vital Signs Date Time Temp Pulse Resp B/P (MAP) Pulse Ox O2 Delivery O2 Flow Rate FiO2 06/19/19 20:08 95 06/19/19 16:08 97.6 95 18 101/62 (75) Room Air I & O 06/18/19 06/18/19 06/19/19 15:00 23:00 07:00 Intake Total 1080 ml 480 ml 240 ml Balance 1080 ml 480 ml 240 ml Current Medications: Meds: Current Medications Medications (Trade) Dose Ordered Sig/Antoinette Route PRN Reason Start Time Stop Time Status Last Admin Dose Admin Acetaminophen/ Hydrocodone Bitart (Lortab 5/325) 1 tab PRN Q4HRS PRN PO PAIN 06/19/19 06:00 06/19/19 20:08 Vitamin D (Vitamin D3) 50,000 unit WEEKLY PO 06/19/19 15:15 06/19/19 17:25 I have reviewed the current psychotropics carefully including drug interactions. Risk benefit ratio favors no change other than as noted in my dictated progress note. 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
--- NOTE | 2019-06-20 01:03 | NUR ---
Nursing Note Pt calls [employer] staff fuckers and bitches when they are getting her ready for bed. Screams for them to leave her alone and stop it. Has very poor short term memory, asks all passersby to give her pain meds, even after she was told that I was bringing them. Then when I was getting ready to administer the pain meds, I told her I had pain meds in my hand, as I was opening the pill packages she states "Can someone give me my pain medicine now???" I told her again I have them in my hand stop asking. She complains of pain in various places but cannot rate it.
[2019-06-20 06:36] VITALS: BP 110/70
[2019-06-20 08:02] LABS: BASO % 0 % (0-3); EOS # 0.1 x10^3/uL (0.0-0.7); EOS % 2 % (0-3); HEMATOCRIT 33.5 % (36.0-47.0); HEMOGLOBIN 10.6 g/dL (12.0-15.5); LYMPH # 2.6 x10^3/uL (1.0-4.8); LYMPH % 36 % (24-48); MEAN CORPUSCULAR HEMOGLOBIN 26 pg (25-35); MEAN CORPUSCULAR HGB CONC 32 g/dL (31-37); MEAN CORPUSCULAR VOLUME 81 fL (79-100); MONO # 0.5 x10^3/uL (0.0-1.1); MONO % 7 % (0-9); NEUT % 55 % (31-73); PLATELET COUNT 170 x10^3/uL (140-400); RED BLOOD COUNT 4.14 x10^6/uL (3.50-5.40); RED CELL DISTRIBUTION WIDTH 14.5 % (11.5-14.5); WHITE BLOOD COUNT 7.3 x10^3/uL (4.0-11.0)
[2019-06-20 08:22] LABS: ALBUMIN 2.8 g/dL (3.4-5.0); ALK PHOS 47 U/L (46-116); ALT (SGPT) 22 U/L (14-59); ANION GAP 7 (6-14); AST (SGOT) 11 U/L (15-37); BLOOD UREA NITROGEN 23 mg/dL (7-20); BUN/CREATININE RATIO 38 (6-20); CALCIUM 8.3 mg/dL (8.5-10.1); CARBON DIOXIDE 29 mmol/L (21-32); CHLORIDE 105 mmol/L (98-107); CREATININE 0.6 mg/dL (0.6-1.0); GFR 100.6; GLUCOSE 141 mg/dL (70-99); POTASSIUM 4.6 mmol/L (3.5-5.1); SODIUM 141 mmol/L (136-145); TOTAL BILIRUBIN 0.2 mg/dL (0.2-1.0); TOTAL PROTEIN 5.7 g/dL (6.4-8.2)
[2019-06-20 08:25] LABS: VAL ACID 12 mcg/mL (50-100)
[2019-06-20] MEDS: metFORMIN 500 MG TABLET PO SCH ×2 (08:32→17:16)
[2019-06-20] MEDS: hydroCHLOROthiazide 25 MG TABLET PO SCH (08:32)
[2019-06-20] MEDS: DIVALPROEX 125 MG CAP.SPRINK PO SCH ×2 (08:32→17:16)
[2019-06-20] MEDS: amLODIPine BESYLATE 5 MG TABLET PO SCH (08:33)
[2019-06-20] MEDS: LISINOPRIL 20 MG TABLET PO SCH (08:33)
[2019-06-20] MEDS: TAMOXIFEN 10 MG TABLET PO SCH (08:33)
[2019-06-20] MEDS: NYSTATIN TOPICAL POWDER 15GM BOTTLE. TP SCH ×2 (08:34→20:54)
[2019-06-20] MEDS: SERTRALINE 25 MG TABLET. PO SCH (08:34)
[2019-06-20] MEDS: METOPROLOL SUCC 24HR ER 25 MG TAB.ER.24H. PO SCH (08:34)
[2019-06-20] MEDS: HYDROCORTISONE 1% LOTION BOTTLE. TP SCH ×3 (08:34→20:54)
[2019-06-20] MEDS: CYANOCOBALAMIN (VITAMIN B-12) 1,000 MCG/ML VIAL IM SCH (08:38)
[2019-06-20] MEDS: IBUPROFEN 400 MG TABLET. PO PRN (09:22)
--- NOTE | 2019-06-20 11:00 | NUR ---
Pt is fixated on using the bathroom this am. When staff assists her to the bathroom she will be resistive and refuse to stand. Staff offered bathroom assistance X 3. PRN zyprexa zydis and motrin given. Pt is compliant with her medication and assessment.
[2019-06-20 16:17] VITALS: BP 101/65
[2019-06-20] MEDS: traZODone 50 MG TABLET. PO SCH (20:54)
[2019-06-20] MEDS: LATANOPROST 0.005% OPHTH SOLUTION 2.5ML BOTTLE. OD SCH (20:54)
[2019-06-20] MEDS: ATORVASTATIN CALCIUM 10 MG TABLET. PO SCH (20:54)
--- NOTE | 2019-06-20 21:28 | PDOC ---
Exam Note: Phillip Note: Please also refer to the separate dictated note~for this date of service dictated separately.~Patient seen individually. Discussed the patient with Nursing staff reviewed the chart.~Reviewed interim history and current functioning. Reviewed vital signs,~Labs/ Radiology~and current medications noted below. Continue current treatment with the changes noted in the dictated addendum note Assessment: Vital Signs/I&O: Vital Signs Date Time Temp Pulse Resp B/P (MAP) Pulse Ox O2 Delivery O2 Flow Rate FiO2 06/20/19 16:17 97.6 91 20 101/65 (77) 97 06/19/19 16:08 Room Air I & O 06/19/19 06/19/19 06/20/19 15:00 23:00 07:00 Intake Total 840 ml 480 ml Balance 840 ml 480 ml Labs: Laboratory Tests Test 06/20/19 07:54 06/20/19 08:13 White Blood Count 7.3 x10^3/uL (4.0-11.0) Red Blood Count 4.14 x10^6/uL (3.50-5.40) Hemoglobin 10.6 g/dL (12.0-15.5) L Hematocrit 33.5 % (36.0-47.0) L Mean Corpuscular Volume 81 fL (79-100) Mean Corpuscular Hemoglobin 26 pg (25-35) Mean Corpuscular Hemoglobin Concent 32 g/dL (31-37) Red Cell Distribution Width 14.5 % (11.5-14.5) Platelet Count 170 x10^3/uL (140-400) Neutrophils (%) (Auto) 55 % (31-73) Lymphocytes (%) (Auto) 36 % (24-48) Monocytes (%) (Auto) 7 % (0-9) Eosinophils (%) (Auto) 2 % (0-3) Basophils (%) (Auto) 0 % (0-3) Neutrophils # (Auto) 4.0 x10^3uL (1.8-7.7) Lymphocytes # (Auto) 2.6 x10^3/uL (1.0-4.8) Monocytes # (Auto) 0.5 x10^3/uL (0.0-1.1) Eosinophils # (Auto) 0.1 x10^3/uL (0.0-0.7) Basophils # (Auto) 0.0 x10^3/uL (0.0-0.2) Sodium Level 141 mmol/L (136-145) Potassium Level 4.6 mmol/L (3.5-5.1) Chloride Level 105 mmol/L (98-107) Carbon Dioxide Level 29 mmol/L (21-32) Anion Gap 7 (6-14) Blood Urea Nitrogen 23 mg/dL (7-20) H Creatinine 0.6 mg/dL (0.6-1.0) Estimated GFR (Cockcroft-Gault) 100.6 BUN/Creatinine Ratio 38 (6-20) H Glucose Level 141 mg/dL (70-99) H Calcium Level 8.3 mg/dL (8.5-10.1) L Total Bilirubin 0.2 mg/dL (0.2-1.0) Aspartate Amino Transferase (AST) 11 U/L (15-37) L Alanine Aminotransferase (ALT) 22 U/L (14-59) Alkaline Phosphatase 47 U/L (46-116) Total Protein 5.7 g/dL (6.4-8.2) L Albumin 2.8 g/dL (3.4-5.0) L Albumin/Globulin Ratio 1.0 (1.0-1.7) Valproic Acid Level 12 mcg/mL (50-100) L Valproic Acid Last Dose Date 06/19/19 Valproic Acid Last Dose Time 1700 Glucose (Fingerstick) 131 mg/dL (70-99) H Current Medications: Meds: Current Medications Medications (Trade) Dose Ordered Sig/Antoinette Route PRN Reason Start Time Stop Time Status Last Admin Dose Admin Cyanocobalamin (Vitamin B-12) 1,000 mcg WEEKLY IM 06/20/19 09:00 06/20/19 08:38 Olanzapine (ZyPREXA ZYDIS) 2.5 mg PRN Q2HR PRN PO PSYCHOSIS 06/20/19 09:15 06/20/19 09:22 I have reviewed the current psychotropics carefully including drug interactions. Risk benefit ratio favors no change other than as noted in my dictated progress note. 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
--- NOTE | 2019-06-20 23:16 | PN ---
DATE: 06/18/2019 PSYCHIATRIC PROGRESS NOTE. This late entry of 06/18/2019 covers the elements not covered in my initial note. SUBJECTIVE: I met with the patient in the evening of 06/18/2019. Per MARISOL Larkin, the patient slept 7 hours previous night. She has been pleasant, compliant, not yelling per nursing report. Previous evening, she refused to wash her hair and gets quite obsessed about this. REVIEW OF SYSTEMS: Ambulation impaired, in wheelchair. No CV, , pulmonary, eye system symptoms on review. MENTAL STATUS EXAM: Oriented to herself and situation. Speech has some latency, can be a little rapid at times, partly due to disinhibition consequent to her frontal lobe damage. Abstraction fair, computation impaired, language function intact, attention span short. Mood and affect somewhat anxious, labile at times. LABORATORY DATA: Reviewed. IMPRESSION: Unchanged from initial note. PLAN: No change from initial note. Depakote is being adjusted. We will follow labs level on 06/20/2019. Continue Zoloft along with Zyprexa and trazodone p.r.n. OSKAR STEPHENSON MD DR: JORDAN/ember JOB#: [id number] / [id number]
--- NOTE | 2019-06-21 00:12 | NUR ---
Nursing Note Pt is pleasant to nurse upon assessment, even complimentary. With the techs, she was whining, and calling names telling staff bloody swines very difficult to deal with, won't bear weight on transfers, goes weight on them. Angry and belligerent.
[2019-06-21 06:03] VITALS: BP 105/67
[2019-06-21] MEDS: NYSTATIN TOPICAL POWDER 15GM BOTTLE. TP SCH ×2 (09:00→20:44)
[2019-06-21] MEDS: LISINOPRIL 20 MG TABLET PO SCH (09:00)
[2019-06-21] MEDS: HYDROCORTISONE 1% LOTION BOTTLE. TP SCH ×3 (09:00→20:45)
[2019-06-21] MEDS: amLODIPine BESYLATE 5 MG TABLET PO SCH (09:00)
[2019-06-21] MEDS: hydroCHLOROthiazide 25 MG TABLET PO SCH (09:03)
[2019-06-21] MEDS: metFORMIN 500 MG TABLET PO SCH ×2 (09:03→17:13)
[2019-06-21] MEDS: DIVALPROEX 125 MG CAP.SPRINK PO SCH ×4 (09:03→20:44)
[2019-06-21] MEDS: TAMOXIFEN 10 MG TABLET PO SCH (09:05)
[2019-06-21] MEDS: SERTRALINE 25 MG TABLET. PO SCH (09:05)
[2019-06-21] MEDS: METOPROLOL SUCC 24HR ER 25 MG TAB.ER.24H. PO SCH (09:05)
[2019-06-21 10:16] LABS: BASO % 1 % (0-3); EOS # 0.1 x10^3/uL (0.0-0.7); EOS % 1 % (0-3); HEMATOCRIT 37.6 % (36.0-47.0); HEMOGLOBIN 11.8 g/dL (12.0-15.5); LYMPH % 26 % (24-48); MEAN CORPUSCULAR HEMOGLOBIN 26 pg (25-35); MEAN CORPUSCULAR HGB CONC 31 g/dL (31-37); MEAN CORPUSCULAR VOLUME 81 fL (79-100); MONO # 0.4 x10^3/uL (0.0-1.1); MONO % 6 % (0-9); NEUT % 66 % (31-73); PLATELET COUNT 212 x10^3/uL (140-400); RED BLOOD COUNT 4.63 x10^6/uL (3.50-5.40); RED CELL DISTRIBUTION WIDTH 14.7 % (11.5-14.5); WHITE BLOOD COUNT 7.5 x10^3/uL (4.0-11.0)
[2019-06-21 10:24] LABS: ALBUMIN 3.3 g/dL (3.4-5.0); ALBUMIN/GLOBULIN RATIO 0.9 (1.0-1.7); CALCIUM 9.1 mg/dL (8.5-10.1); CREATININE 0.6 mg/dL (0.6-1.0); GFR 100.6; POTASSIUM 4.2 mmol/L (3.5-5.1); TOTAL BILIRUBIN 0.2 mg/dL (0.2-1.0)
--- NOTE | 2019-06-21 10:53 | NUR ---
Pt is fixated on using the bathroom this am. PRN benjy valente. Pt is compliant with her medication and assessment. No aggression, no hallucinations, no delusions.
[2019-06-21 15:51] VITALS: BP 118/78
--- NOTE | 2019-06-21 19:21 | PN ---
DATE: 06/19/2019 PSYCHIATRIC PROGRESS NOTE. This late entry of 06/19/2019 covers the elements not covered in my initial note. SUBJECTIVE: I met with the patient in the evening of 06/19/2019. Per MARISOL Valero, the patient slept 3 hours previous night. She sat herself on the floor at one point. No injuries noted. At times, she makes abusive remarks to staff, calling nursing staff "swines". Part of this is her unfiltered response consequent to the frontal lobe damage and I addressed this with her. REVIEW OF SYSTEMS: Ambulation impaired, in wheelchair. No CV, , pulmonary, eye system symptoms on review, does complain of discomfort, lower extremity, defer to Dr. Vee. MENTAL STATUS EXAM: Oriented to herself and situation. Speech has some latency, can be a little rapid at times. Abstraction fair, computation impaired, language function intact, attention span short. Mood and affect remains labile, anxious. LABORATORY DATA: Reviewed. 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 Rest unchanged. PLAN: Continue Zoloft along with Depakote Sprinkles 125 mg b.i.d. Check labs level on 06/20/2019 including valproic acid level and adjust further thereafter. Continue Zyprexa and trazodone p.r.n. OSKAR STEPHENSON MD DR: JORDAN/ember JOB#: [id number] / [id number]
--- NOTE | 2019-06-21 19:32 | PN ---
DATE: 06/20/2019 PSYCHIATRIC PROGRESS NOTE This late entry of June 19 covers elements not covered in my initial note. SUBJECTIVE: I met with the patient on evening of . The patient slept 6 hours previous night per MARISOL Valero. The patient at times is a weight, even though she can assist, she defers to nursing staff to assist her with ADLs. She continues to be using profanities at times including "you swine." Valproic acid level subtherapeutic at 12 on Depakote Sprinkles 125 b.i.d. REVIEW OF SYSTEMS: Ambulation impaired, in wheelchair. No CV, , pulmonary, eye system symptoms on review. MENTAL STATUS EXAM: Oriented to herself and situation. Speech is coherent, can be rapid at times. Abstraction fair. Computation impaired. Language function intact. Attention span short. Mood and affect remain labile, can be little grandiose at times. LABORATORY DATA: Reviewed. 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 PLAN: Increase Depakote Sprinkles to 125 mg 4 times a day. Check CBC, CMP, valproic acid level in 3 days. Maintain Zoloft 75 mg a day, trazodone and Zyprexa are p.r.n. Adjust further as clinically indicated. MAN Darby STEPHENSON MD DR: JORDAN/ember JOB#: [id number] / [id number]
[2019-06-21] MEDS: ATORVASTATIN CALCIUM 10 MG TABLET. PO SCH (20:44)
[2019-06-21] MEDS: LATANOPROST 0.005% OPHTH SOLUTION 2.5ML BOTTLE. OD SCH (20:44)
[2019-06-21] MEDS: traZODone 50 MG TABLET. PO SCH (20:44)
--- NOTE | 2019-06-21 21:19 | PDOC ---
Exam Note: Phillip Note: Please also refer to the separate dictated note~for this date of service dictated separately.~Patient seen individually. Discussed the patient with Nursing staff reviewed the chart.~Reviewed interim history and current functioning. Reviewed vital signs,~Labs/ Radiology~and current medications noted below. Continue current treatment with the changes noted in the dictated addendum note Assessment: Vital Signs/I&O: Vital Signs Date Time Temp Pulse Resp B/P (MAP) Pulse Ox O2 Delivery O2 Flow Rate FiO2 06/21/19 15:51 97.5 80 18 118/78 (91) 95 06/19/19 16:08 Room Air I & O 06/20/19 06/20/19 06/21/19 15:00 23:00 07:00 Intake Total 840 ml 360 ml 120 ml Balance 840 ml 360 ml 120 ml Labs: Laboratory Tests Test 06/21/19 07:37 06/21/19 09:50 Glucose (Fingerstick) 119 mg/dL (70-99) H White Blood Count 7.5 x10^3/uL (4.0-11.0) Red Blood Count 4.63 x10^6/uL (3.50-5.40) Hemoglobin 11.8 g/dL (12.0-15.5) L Hematocrit 37.6 % (36.0-47.0) Mean Corpuscular Volume 81 fL (79-100) Mean Corpuscular Hemoglobin 26 pg (25-35) Mean Corpuscular Hemoglobin Concent 31 g/dL (31-37) Red Cell Distribution Width 14.7 % (11.5-14.5) H Platelet Count 212 x10^3/uL (140-400) Neutrophils (%) (Auto) 66 % (31-73) Lymphocytes (%) (Auto) 26 % (24-48) Monocytes (%) (Auto) 6 % (0-9) Eosinophils (%) (Auto) 1 % (0-3) Basophils (%) (Auto) 1 % (0-3) Neutrophils # (Auto) 5.0 x10^3uL (1.8-7.7) Lymphocytes # (Auto) 2.0 x10^3/uL (1.0-4.8) Monocytes # (Auto) 0.4 x10^3/uL (0.0-1.1) Eosinophils # (Auto) 0.1 x10^3/uL (0.0-0.7) Basophils # (Auto) 0.0 x10^3/uL (0.0-0.2) Sodium Level 139 mmol/L (136-145) Potassium Level 4.2 mmol/L (3.5-5.1) Chloride Level 101 mmol/L (98-107) Carbon Dioxide Level 29 mmol/L (21-32) Anion Gap 9 (6-14) Blood Urea Nitrogen 22 mg/dL (7-20) H Creatinine 0.6 mg/dL (0.6-1.0) Estimated GFR (Cockcroft-Gault) 100.6 BUN/Creatinine Ratio 37 (6-20) H Glucose Level 210 mg/dL (70-99) H Calcium Level 9.1 mg/dL (8.5-10.1) Total Bilirubin 0.2 mg/dL (0.2-1.0) Aspartate Amino Transferase (AST) 18 U/L (15-37) Alanine Aminotransferase (ALT) 29 U/L (14-59) Alkaline Phosphatase 54 U/L (46-116) Total Protein 7.0 g/dL (6.4-8.2) Albumin 3.3 g/dL (3.4-5.0) L Albumin/Globulin Ratio 0.9 (1.0-1.7) L Current Medications: Meds: Current Medications Medications (Trade) Dose Ordered Sig/Antoinette Route PRN Reason Start Time Stop Time Status Last Admin Dose Admin Divalproex Sodium (Depakote Sprinkles) 125 mg [id number] PO 06/21/19 09:00 06/21/19 20:44 I have reviewed the current psychotropics carefully including drug interactions. Risk benefit ratio favors no change other than as noted in my dictated progress note. 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
[2019-06-22 06:22] VITALS: BP 114/69
[2019-06-22] MEDS: DIVALPROEX 125 MG CAP.SPRINK PO SCH ×4 (08:09→20:38)
[2019-06-22] MEDS: metFORMIN 500 MG TABLET PO SCH ×2 (08:09→17:54)
[2019-06-22] MEDS: hydroCHLOROthiazide 25 MG TABLET PO SCH (08:09)
[2019-06-22] MEDS: amLODIPine BESYLATE 5 MG TABLET PO SCH (08:10)
[2019-06-22] MEDS: METOPROLOL SUCC 24HR ER 25 MG TAB.ER.24H. PO SCH (08:10)
[2019-06-22] MEDS: LISINOPRIL 20 MG TABLET PO SCH (08:11)
[2019-06-22] MEDS: SERTRALINE 25 MG TABLET. PO SCH (08:11)
[2019-06-22] MEDS: TAMOXIFEN 10 MG TABLET PO SCH (08:12)
[2019-06-22] MEDS: HYDROCORTISONE 1% LOTION BOTTLE. TP SCH ×4 (08:16→20:39)
[2019-06-22] MEDS: NYSTATIN TOPICAL POWDER 15GM BOTTLE. TP SCH ×2 (11:44→20:39)
--- NOTE | 2019-06-22 14:07 | NUR ---
Patient is demanding and gets angry if she does not get her own way. She has called the staff "bloody idiots". She was compliant with her medications. When staff is toileting patient, patient refused to put her feet on the floor during the transfer. Patient is generally a two person transfer but has been a three person. She has " weighted" several times during transfers onto the toilet. Patient acts helpless and has been attention seeking regarding being taken to the restroom, even when she has just returned from the bathroom.
[2019-06-22 16:11] VITALS: BP 130/70
[2019-06-22] MEDS: traZODone 50 MG TABLET. PO SCH (20:38)
[2019-06-22] MEDS: LATANOPROST 0.005% OPHTH SOLUTION 2.5ML BOTTLE. OD SCH (20:38)
[2019-06-22] MEDS: ATORVASTATIN CALCIUM 10 MG TABLET. PO SCH (20:38)
--- NOTE | 2019-06-22 21:29 | PDOC ---
Exam Note: Phillip Note: Please also refer to the separate dictated note~for this date of service dictated separately.~Patient seen individually. Discussed the patient with Nursing staff reviewed the chart.~Reviewed interim history and current functioning. Reviewed vital signs,~Labs/ Radiology~and current medications noted below. Continue current treatment with the changes noted in the dictated addendum note Assessment: Vital Signs/I&O: Vital Signs Date Time Temp Pulse Resp B/P (MAP) Pulse Ox O2 Delivery O2 Flow Rate FiO2 06/22/19 16:11 98.4 92 20 130/70 (90) 99 06/19/19 16:08 Room Air I & O 06/21/19 06/21/19 06/22/19 14:59 22:59 06:59 Intake Total 720 ml 0 ml 60 ml Balance 720 ml 0 ml 60 ml Labs: Laboratory Tests Test 06/22/19 07:55 Glucose (Fingerstick) 137 mg/dL (70-99) H Current Medications: I have reviewed the current psychotropics carefully including drug interactions. Risk benefit ratio favors no change other than as noted in my dictated progress note. 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
--- NOTE | 2019-06-23 00:24 | PN ---
DATE: 06/21/2019 PSYCHIATRIC PROGRESS NOTE This late entry 06/21/2019 covers elements not covered in my initial note. SUBJECTIVE: I met with the patient evening of June 20. Per MARISOL Lopez, the patient slept 7 hours previous night. She was restless in the morning, otherwise more cooperative. She does have frontal lobe damage reducing her social cues and also had short-term memory deficits. REVIEW OF SYSTEMS: Ambulation impaired, in wheelchair. No CV, , pulmonary, eye system symptoms on review. MENTAL STATUS EXAM: Oriented to herself and situation. Speech has some latency, a little pressured at times. Abstraction fair, computation impaired, language function intact, attention span short. Mood and affect, somewhat depressed, anxious, labile at times. LABORATORY DATA: Reviewed. IMPRESSION: Major depressive disorder; major neurocognitive disorder secondary to subarachnoid hemorrhage with delusion, depression, behavioral disturbance, impulse control disorder; anxiety disorder, unspecified. PLAN: Continue psychotropics from initial note. Depakote has been increased. May continue Zoloft along with Zyprexa and trazodone, then latter to p.r.n. Follow labs level on the Depakote. MAN Darby STEPHENSON MD DR: JORDAN/ember JOB#: [id number] / [id number]
--- NOTE | 2019-06-23 02:18 | NUR ---
Last evening pt was very restless and active on unit making numerous requests of staff. On transfers and in shower she would not bear weight. She took meds whole without difficulty. Since going to bed she has been sleeping well.
[2019-06-23 05:58] VITALS: BP 107/64
--- NOTE | 2019-06-23 08:43 | NUR ---
Patient refused to get up for breakfast. She told staff to leave her alone. Will give morning medications when she gets up.
[2019-06-23] MEDS: SERTRALINE 25 MG TABLET. PO SCH (09:38)
[2019-06-23] MEDS: LISINOPRIL 20 MG TABLET PO SCH (09:38)
[2019-06-23] MEDS: HYDROCORTISONE 1% LOTION BOTTLE. TP SCH ×3 (09:38→20:08)
[2019-06-23] MEDS: hydroCHLOROthiazide 25 MG TABLET PO SCH (09:39)
[2019-06-23] MEDS: metFORMIN 500 MG TABLET PO SCH ×2 (09:39→17:11)
[2019-06-23] MEDS: amLODIPine BESYLATE 5 MG TABLET PO SCH (09:39)
[2019-06-23] MEDS: METOPROLOL SUCC 24HR ER 25 MG TAB.ER.24H. PO SCH (09:39)
[2019-06-23] MEDS: DIVALPROEX 125 MG CAP.SPRINK PO SCH ×4 (09:39→20:07)
[2019-06-23] MEDS: NYSTATIN TOPICAL POWDER 15GM BOTTLE. TP SCH ×2 (09:40→20:07)
[2019-06-23] MEDS: TAMOXIFEN 10 MG TABLET PO SCH (09:44)
--- NOTE | 2019-06-23 10:00 | NUR ---
Patient complains of pain in foot and ankle areas bilaterally. She has a history of polio as a child. Patient has had xrays on which showed no current fractures but some old fractures and degenerative changes. Patient delusional stating that "2 staff members dressed in white threw her onto the floor in the bathroom and now her legs don't work". She has not been bearing weight 2 days +/- and " weighting" when she is assisted into/out of bed or chair and also when toileting. Will speak to on rounds about her pain.
[2019-06-23] MEDS: HYDROcodone/APAP 5/325MG 1 TAB TABLET PO PRN (10:09)
--- NOTE | 2019-06-23 10:10 | NUR ---
Patient given PRN Lortab for pain in feet and ankles per order. Will continue to monitor.
--- NOTE | 2019-06-23 13:41 | NUR ---
patient is asking repetitive questions. She has asked to call [facility] 5 times since lunch. Nurse told her she could not call, if she has any questions about discharge she needs to discuss them with her social director. Nurse spoke to social director Marlene. LUPE stated she had talked to patient two times on Friday regarding discharge plans. Patient continues to refuse to bear any weight during transfers. Staff is using the Sit to Stand lift for transfers as it is taking 3 staff members to transfer patient each time. This is working well as long as patient is reminded to hold onto the handles.
[2019-06-23 15:58] VITALS: BP 107/65
--- NOTE | 2019-06-23 17:24 | NUR ---
Patient has been very rude and condescending to [employer] staff for most of the day, she shows them no respect and acts as if she is far superior to all others. When she needs something she demands it, then when it is brought she demands something additional. For example: she wanted sugar. When sugar was given to her she stated she wanted creamer also. When creamer was given to her she stated she needed salt also. ETC. This occurs at all meals. She has called the [employer]'s "dirty swine" several times this day and also "bloody idiots". When RN's or SW approach her, she changes her demeanor and is pleasant, thanks them and calls them "angels". At dinner she was very angry that she had received chicken and vegetable stir bahena. She yelled and carried on about wanting "brown gravy on all rice". This nurse checked the dietary order and it stated "prefers food". This nurse added "patient would like brown gravy with rice" to the dietary order. The kitchen had sent extra brown gravy for the mashed potatoes and meat that the other patients were served so gravy was able to be provided to this patient for this meal.
[2019-06-23] MEDS: ATORVASTATIN CALCIUM 10 MG TABLET. PO SCH (20:07)
[2019-06-23] MEDS: LATANOPROST 0.005% OPHTH SOLUTION 2.5ML BOTTLE. OD SCH (20:07)
[2019-06-23] MEDS: traZODone 50 MG TABLET. PO SCH (20:08)
--- NOTE | 2019-06-23 21:24 | PDOC ---
Exam Note: Phillip Note: Please also refer to the separate dictated note~for this date of service dictated separately.~Patient seen individually. Discussed the patient with Nursing staff reviewed the chart.~Reviewed interim history and current functioning. Reviewed vital signs,~Labs/ Radiology~and current medications noted below. Continue current treatment with the changes noted in the dictated addendum note Assessment: Vital Signs/I&O: Vital Signs Date Time Temp Pulse Resp B/P (MAP) Pulse Ox O2 Delivery O2 Flow Rate FiO2 06/23/19 15:58 97.3 100 18 107/65 (79) 96 06/19/19 16:08 Room Air I & O 06/22/19 06/22/19 06/23/19 15:00 23:00 07:00 Intake Total 960 ml 600 ml Balance 960 ml 600 ml Labs: Laboratory Tests Test 06/23/19 07:40 Glucose (Fingerstick) 137 mg/dL (70-99) H Current Medications: I have reviewed the current psychotropics carefully including drug interactions. Risk benefit ratio favors no change other than as noted in my dictated progress note. 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
--- NOTE | 2019-06-23 22:19 | PN ---
DATE: 06/22/2019 PSYCHIATRIC PROGRESS NOTE This late entry of 06/21 covers elements not covered in my initial note. SUBJECTIVE: I met with the patient the evening of 06/21. Per MARISOL Dick, the patient slept 7-1/2 hours the previous night. She uses rather derogatory words to address the nursing staff, "damn you bloody idiots." She is a weight at times per nursing staff, even though she can do more for herself. Some of the impulsive verbalizations are consequent to frontal lobe damage. REVIEW OF SYSTEMS: Ambulation impaired, in wheelchair. No CV, , pulmonary, eye system symptoms on review. MENTAL STATUS EXAMINATION: Oriented to herself and situation. Speech has some latency, coherent. Abstraction fair, computation impaired, language function intact, attention span short. Mood and affect remain somewhat anxious, labile. LABORATORY DATA: Reviewed. IMPRESSION: Unchanged from initial note. PLAN: No change from initial note. Next set of labs on the Depakote due on 06/23; we will adjust dosage thereafter to reach therapeutic level. MAN Darby STEPHENSON MD DR: JORDAN/ember JOB#: [id number] / [id number]
--- NOTE | 2019-06-23 22:56 | NUR ---
This evening pt was making frequent requests to go to BR immediately after going to the BR. She was somewhat able to be redirected by visiting with others. She took her HS meds whole without difficulty. Pt would not bear weight for transfers and was not very cooperative with sit to stand. Discussed with her that lack of cooperation puts her and employees at risk of injury.
[2019-06-24 06:10] VITALS: BP 139/65
[2019-06-24 07:38] LABS: BASO # 0.1 x10^3/uL (0.0-0.2); BASO % 1 % (0-3); EOS # 0.2 x10^3/uL (0.0-0.7); EOS % 2 % (0-3); HEMATOCRIT 35.8 % (36.0-47.0); HEMOGLOBIN 11.2 g/dL (12.0-15.5); LYMPH # 2.4 x10^3/uL (1.0-4.8); LYMPH % 32 % (24-48); MEAN CORPUSCULAR HEMOGLOBIN 25 pg (25-35); MEAN CORPUSCULAR HGB CONC 31 g/dL (31-37); MEAN CORPUSCULAR VOLUME 81 fL (79-100); MONO # 0.5 x10^3/uL (0.0-1.1); MONO % 6 % (0-9); NEUT # 4.5 x10^3uL (1.8-7.7); NEUT % 59 % (31-73); PLATELET COUNT 221 x10^3/uL (140-400); RED BLOOD COUNT 4.43 x10^6/uL (3.50-5.40); RED CELL DISTRIBUTION WIDTH 14.9 % (11.5-14.5); WHITE BLOOD COUNT 7.6 x10^3/uL (4.0-11.0)
[2019-06-24 07:49] LABS: ALBUMIN 3.2 g/dL (3.4-5.0); ALBUMIN/GLOBULIN RATIO 0.9 (1.0-1.7); ALK PHOS 53 U/L (46-116); ALT (SGPT) 49 U/L (14-59); ANION GAP 9 (6-14); AST (SGOT) 37 U/L (15-37); BLOOD UREA NITROGEN 26 mg/dL (7-20); BUN/CREATININE RATIO 43 (6-20); CALCIUM 8.9 mg/dL (8.5-10.1); CARBON DIOXIDE 27 mmol/L (21-32); CHLORIDE 103 mmol/L (98-107); CREATININE 0.6 mg/dL (0.6-1.0); GFR 100.6; GLUCOSE 151 mg/dL (70-99); POTASSIUM 4.4 mmol/L (3.5-5.1); SODIUM 139 mmol/L (136-145); TOTAL BILIRUBIN 0.3 mg/dL (0.2-1.0); TOTAL PROTEIN 6.8 g/dL (6.4-8.2)
[2019-06-24 07:51] LABS: VAL ACID 36 mcg/mL (50-100)
[2019-06-24] MEDS: NYSTATIN TOPICAL POWDER 15GM BOTTLE. TP SCH ×2 (08:01→20:58)
[2019-06-24] MEDS: hydroCHLOROthiazide 25 MG TABLET PO SCH (08:01)
[2019-06-24] MEDS: HYDROCORTISONE 1% LOTION BOTTLE. TP SCH ×3 (08:01→20:58)
[2019-06-24] MEDS: METOPROLOL SUCC 24HR ER 25 MG TAB.ER.24H. PO SCH (08:02)
[2019-06-24] MEDS: SERTRALINE 25 MG TABLET. PO SCH (08:02)
[2019-06-24] MEDS: amLODIPine BESYLATE 5 MG TABLET PO SCH (08:03)
[2019-06-24] MEDS: metFORMIN 500 MG TABLET PO SCH ×2 (08:03→17:45)
[2019-06-24] MEDS: DIVALPROEX 125 MG CAP.SPRINK PO SCH ×4 (08:03→20:57)
[2019-06-24] MEDS: LISINOPRIL 20 MG TABLET PO SCH (08:03)
[2019-06-24] MEDS: TAMOXIFEN 10 MG TABLET PO SCH (08:11)
--- NOTE | 2019-06-24 11:01 | NUR ---
LUPE left msg. for INDIRA Meléndez at [facility], to discuss pt. progress and tentative discharge for the end of next week or early the week after. LUPE left msg. for pt. [id number], Royce, to discuss the previously mention information. Addendum: 06/24/19 at 1103 by WANDA ANDRADE LUPE did attempt to reach Royce for treatment team. Addendum: 06/24/19 at 1425 by WANDA ANDRADE LUPE spoke to INDIRA Meléndez at [facility], regarding pt. progress. Addendum: 06/28/19 at 1055 by WANDA ANDRADE LUPE received a call from Royce on 06/25/2019. LUPE attempted to return the call to Royce on 06/28/2019 and left a voice message. Addendum: 06/29/19 at 0929 by WANDA ANDRADE LUPE spoke to Royce regarding pt. progress and tentative discharge scheduled for 07/02/2019.
--- NOTE | 2019-06-24 11:20 | NUR ---
WEEKLY ACTIVITY THERAPY NOTE Date of Admission: 06/13/2019 Date of AT Assessment: 06/16/2019 Goal aimed: to increase engagement and socialization Initial goal: Pt. will participate in three Activity Therapy groups per week. Weekly progress towards goal: 09/21 Group participation level: 4 full, 1 mod, 1 min Weekly highlights: exercise and trivia on Friday Behaviors observed: wanders often, hyper fixated on toileting or leaving room (sherry Friday PM group), labile; difficulty engaging in groups Plan: no change to goal Beneficial adaptations: direct prompting
--- NOTE | 2019-06-24 12:01 | NUR ---
Patient has been rude and demanding of staff. She is still refusing to bear weight on her own legs/feet. Sit to stand is used for transfers to and from bed, 3 people are required for toileting. Patient is now on 2 hour toileting schedule per Dr. Curiel. Patient continues to state that she has to go to the bathroom every time she approaches the nursing station.
--- NOTE | 2019-06-24 15:49 | NUR ---
Patient has been slightly better this afternoon. She has visited with social work about her discharge. She is not allowed to call her facility, if you tell her "Marlene has spoken to August-August at [facility]" she reacts better. She is still knocking on the nurses station glass but is more re-directable when told that she is on a toileting schedule and it isn't time yet. Nurse spoke with job spotter about getting brown gravy with patients rice, serving hot water for tea with her meals and having larger portions of bread/muffins at breakfast per patients request.
[2019-06-24 16:24] VITALS: BP 110/71
[2019-06-24] MEDS: ATORVASTATIN CALCIUM 10 MG TABLET. PO SCH (20:57)
[2019-06-24] MEDS: traZODone 50 MG TABLET. PO SCH (20:57)
[2019-06-24] MEDS: LATANOPROST 0.005% OPHTH SOLUTION 2.5ML BOTTLE. OD SCH (20:58)
--- NOTE | 2019-06-24 21:21 | PDOC ---
Exam Note: Phillip Note: Please also refer to the separate dictated note~for this date of service dictated separately.~Patient seen individually. Discussed the patient with Nursing staff reviewed the chart.~Reviewed interim history and current functioning. Reviewed vital signs,~Labs/ Radiology~and current medications noted below. Continue current treatment with the changes noted in the dictated addendum note Assessment: Vital Signs/I&O: Vital Signs Date Time Temp Pulse Resp B/P (MAP) Pulse Ox O2 Delivery O2 Flow Rate FiO2 06/24/19 16:24 97.5 80 20 110/71 (84) 96 06/24/19 06:10 Room Air I & O 06/23/19 06/23/19 06/24/19 15:00 23:00 07:00 Intake Total 480 ml 360 ml Balance 480 ml 360 ml Labs: Laboratory Tests Test 06/24/19 07:25 06/24/19 07:53 White Blood Count 7.6 x10^3/uL (4.0-11.0) Red Blood Count 4.43 x10^6/uL (3.50-5.40) Hemoglobin 11.2 g/dL (12.0-15.5) L Hematocrit 35.8 % (36.0-47.0) L Mean Corpuscular Volume 81 fL (79-100) Mean Corpuscular Hemoglobin 25 pg (25-35) Mean Corpuscular Hemoglobin Concent 31 g/dL (31-37) Red Cell Distribution Width 14.9 % (11.5-14.5) H Platelet Count 221 x10^3/uL (140-400) Neutrophils (%) (Auto) 59 % (31-73) Lymphocytes (%) (Auto) 32 % (24-48) Monocytes (%) (Auto) 6 % (0-9) Eosinophils (%) (Auto) 2 % (0-3) Basophils (%) (Auto) 1 % (0-3) Neutrophils # (Auto) 4.5 x10^3uL (1.8-7.7) Lymphocytes # (Auto) 2.4 x10^3/uL (1.0-4.8) Monocytes # (Auto) 0.5 x10^3/uL (0.0-1.1) Eosinophils # (Auto) 0.2 x10^3/uL (0.0-0.7) Basophils # (Auto) 0.1 x10^3/uL (0.0-0.2) Sodium Level 139 mmol/L (136-145) Potassium Level 4.4 mmol/L (3.5-5.1) Chloride Level 103 mmol/L (98-107) Carbon Dioxide Level 27 mmol/L (21-32) Anion Gap 9 (6-14) Blood Urea Nitrogen 26 mg/dL (7-20) H Creatinine 0.6 mg/dL (0.6-1.0) Estimated GFR (Cockcroft-Gault) 100.6 BUN/Creatinine Ratio 43 (6-20) H Glucose Level 151 mg/dL (70-99) H Calcium Level 8.9 mg/dL (8.5-10.1) Total Bilirubin 0.3 mg/dL (0.2-1.0) Aspartate Amino Transferase (AST) 37 U/L (15-37) Alanine Aminotransferase (ALT) 49 U/L (14-59) Alkaline Phosphatase 53 U/L (46-116) Total Protein 6.8 g/dL (6.4-8.2) Albumin 3.2 g/dL (3.4-5.0) L Albumin/Globulin Ratio 0.9 (1.0-1.7) L Valproic Acid Level 36 mcg/mL (50-100) L Valproic Acid Last Dose Date 06/23/19 Valproic Acid Last Dose Time 2100 Glucose (Fingerstick) 150 mg/dL (70-99) H Current Medications: Meds: Current Medications Medications (Trade) Dose Ordered Sig/Antoinette Route PRN Reason Start Time Stop Time Status Last Admin Dose Admin Divalproex Sodium (Depakote Sprinkles) 125 mg 1300,1700 PO 06/24/19 13:00 06/24/19 17:45 Divalproex Sodium (Depakote Sprinkles) 250 mg BID PO 06/24/19 21:00 06/24/19 20:57 I have reviewed the current psychotropics carefully including drug interactions. Risk benefit ratio favors no change other than as noted in my dictated progress note. 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
--- NOTE | 2019-06-24 23:48 | NUR ---
Nursing Note The patient was located in the day room for her assessment and medication pass. The patient was calm and compliant with her medication and assessment. The patient took her medication whole. The patient is currently sleeping in her room.
[2019-06-25 06:55] VITALS: BP 110/68
[2019-06-25] MEDS: NYSTATIN TOPICAL POWDER 15GM BOTTLE. TP SCH ×2 (09:00→20:59)
[2019-06-25] MEDS: hydroCHLOROthiazide 25 MG TABLET PO SCH (09:12)
[2019-06-25] MEDS: HYDROCORTISONE 1% LOTION BOTTLE. TP SCH ×3 (09:12→20:59)
[2019-06-25] MEDS: amLODIPine BESYLATE 5 MG TABLET PO SCH (09:12)
[2019-06-25] MEDS: DIVALPROEX 125 MG CAP.SPRINK PO SCH ×4 (09:13→20:59)
[2019-06-25] MEDS: LISINOPRIL 20 MG TABLET PO SCH (09:13)
[2019-06-25] MEDS: SERTRALINE 25 MG TABLET. PO SCH (09:13)
[2019-06-25] MEDS: METOPROLOL SUCC 24HR ER 25 MG TAB.ER.24H. PO SCH (09:13)
[2019-06-25] MEDS: metFORMIN 500 MG TABLET PO SCH ×2 (09:14→17:32)
[2019-06-25] MEDS: TAMOXIFEN 10 MG TABLET PO SCH (09:18)
--- NOTE | 2019-06-25 10:26 | NUR ---
Pt has been anxious and attention seeking this morning. Pt obsessed with using the toilet and is now on a 2 hr toileting schedule. Pt continues to not bear weight during transfers. Sit to stand is utilized for transfers. Compliant with whole medications. Pt currently wandering unit in her wheelchair. Will continue to monitor.
[2019-06-25 15:39] VITALS: BP 124/60
--- NOTE | 2019-06-25 19:57 | PN ---
DATE: 06/23/2019 PSYCHIATRIC PROGRESS NOTE This late entry, 06/22, covers the elements not covered in my initial note. SUBJECTIVE: I met with the patient in the evening. Per MARISOL Dick, the patient complains of pain in her leg at times as a weight on transfers, though she can do more for herself. Slept 7 hours previous night, did receive Lortab for pain. REVIEW OF SYSTEMS: Ambulation impaired, in wheelchair. No CV, , pulmonary, eye systems symptoms on review. MENTAL STATUS EXAM: Oriented to herself and situation. Speech coherent, somewhat rapid at times. Abstraction fair, computation impaired, language function intact, attention span short. Mood and affect remain somewhat anxious, labile. LABORATORY DATA: Reviewed. IMPRESSION: Unchanged from initial note. Major depressive disorder, major neurocognitive disorder, multifactorial with depression, impulse control disorder; anxiety disorder, unspecified. PLAN: Continue psychotropics from initial note. Check a valproic acid level. Adjust Depakote to reach therapeutic level. Rest unchanged for now. OSKAR STEPHENSON MD DR: JORDAN/ember JOB#: [id number] / [id number]
--- NOTE | 2019-06-25 20:00 | PN ---
DATE: 06/24/2019 PSYCHIATRIC PROGRESS NOTE This late entry, 06/23, covers the elements not covered in my initial note. SUBJECTIVE: I met with the patient in the evening of 06/23. The patient was staffed at a treatment team meeting with the entire team in the morning and the patient's [id number] was not available, even though she was to attend the meeting. Sleeping 6-1/2 hours previous night, 7 hours on average, 75% for appetite. She is restless, believes nursing staff and CNAs are against her. She is, per nursing report, demanding, manipulative, having complaints with the night 911 TELECOMMUNICATOR staff and I addressed this with her. REVIEW OF SYSTEMS: Ambulation impaired, in wheelchair. No CV, , pulmonary, eye systems symptoms on review. She has vague somatic symptoms. MENTAL STATUS EXAM: Oriented to herself and situation. Speech coherent, rapid at times. Abstraction fair, computation impaired, language function intact, attention span short. Mood and affect remains somewhat labile, anxious. LABORATORY DATA: Reviewed. IMPRESSION: Unchanged from initial note. PLAN: Valproic acid level is subtherapeutic at 36. We will increase Depakote to 250 b.i.d. from 125 mg b.i.d. Check CBC, CMP, valproic acid level, ammonia level in 3 days. Rest unchanged from initial note. MAN Darby STEPHENSON MD DR: JORDAN/ember JOB#: [id number] / [id number]
[2019-06-25] MEDS: traZODone 50 MG TABLET. PO SCH (20:59)
[2019-06-25] MEDS: LATANOPROST 0.005% OPHTH SOLUTION 2.5ML BOTTLE. OD SCH (20:59)
[2019-06-25] MEDS: ATORVASTATIN CALCIUM 10 MG TABLET. PO SCH (20:59)
--- NOTE | 2019-06-25 21:24 | PDOC ---
Exam Note: Phillip Note: Please also refer to the separate dictated note~for this date of service dictated separately.~Patient seen individually. Discussed the patient with Nursing staff reviewed the chart.~Reviewed interim history and current functioning. Reviewed vital signs,~Labs/ Radiology~and current medications noted below. Continue current treatment with the changes noted in the dictated addendum note Assessment: Vital Signs/I&O: Vital Signs Date Time Temp Pulse Resp B/P (MAP) Pulse Ox O2 Delivery O2 Flow Rate FiO2 06/25/19 15:39 97.0 95 16 124/60 (81) 99 06/24/19 06:10 Room Air I & O 06/24/19 06/24/19 06/25/19 15:00 23:00 07:00 Intake Total 480 ml 720 ml 240 ml Balance 480 ml 720 ml 240 ml Labs: Laboratory Tests Test 06/25/19 07:28 Glucose (Fingerstick) 122 mg/dL (70-99) H Current Medications: I have reviewed the current psychotropics carefully including drug interactions. Risk benefit ratio favors no change other than as noted in my dictated progress note. 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
--- NOTE | 2019-06-26 00:20 | NUR ---
Nursing Note The patient was very calm and cooperative during her medication pass and assessment. The patient was in good spirits the shift and was joking with staff and teaching staff members words in several different languages. The patient is currently sleeping in her room.
[2019-06-26 06:35] VITALS: BP 114/70
[2019-06-26] MEDS: DIVALPROEX 125 MG CAP.SPRINK PO SCH ×4 (09:00→20:33)
[2019-06-26] MEDS: hydroCHLOROthiazide 25 MG TABLET PO SCH (09:00)
[2019-06-26] MEDS: metFORMIN 500 MG TABLET PO SCH ×2 (09:00→17:12)
[2019-06-26] MEDS: TAMOXIFEN 10 MG TABLET PO SCH (09:01)
[2019-06-26] MEDS: amLODIPine BESYLATE 5 MG TABLET PO SCH (09:02)
[2019-06-26] MEDS: METOPROLOL SUCC 24HR ER 25 MG TAB.ER.24H. PO SCH (09:07)
[2019-06-26] MEDS: HYDROCORTISONE 1% LOTION BOTTLE. TP SCH ×3 (09:07→20:32)
[2019-06-26] MEDS: SERTRALINE 25 MG TABLET. PO SCH (09:07)
[2019-06-26] MEDS: LISINOPRIL 20 MG TABLET PO SCH (09:07)
[2019-06-26] MEDS: NYSTATIN TOPICAL POWDER 15GM BOTTLE. TP SCH ×2 (09:07→20:32)
[2019-06-26] MEDS: CHOLECALCIFEROL (VITAMIN D3) 50,000 UNIT CAPSULE PO SCH (09:10)
--- NOTE | 2019-06-26 10:22 | NUR ---
Pt is calm, cooperative, and compliant. No agitation, no aggression, no hallucinations, no delusions. She is compliant with her medications and assessment.
[2019-06-26 15:55] VITALS: BP 110/71
[2019-06-26] MEDS: ATORVASTATIN CALCIUM 10 MG TABLET. PO SCH (20:32)
[2019-06-26] MEDS: traZODone 50 MG TABLET. PO SCH (20:33)
[2019-06-26] MEDS: LATANOPROST 0.005% OPHTH SOLUTION 2.5ML BOTTLE. OD SCH (20:33)
--- NOTE | 2019-06-26 21:16 | PDOC ---
Exam Note: Phillip Note: Please also refer to the separate dictated note~for this date of service dictated separately.~Patient seen individually. Discussed the patient with Nursing staff reviewed the chart.~Reviewed interim history and current functioning. Reviewed vital signs,~Labs/ Radiology~and current medications noted below. Continue current treatment with the changes noted in the dictated addendum note Assessment: Vital Signs/I&O: Vital Signs Date Time Temp Pulse Resp B/P (MAP) Pulse Ox O2 Delivery O2 Flow Rate FiO2 06/26/19 15:55 98.7 94 18 110/71 (84) 97 06/24/19 06:10 Room Air I & O 06/25/19 06/25/19 06/26/19 15:00 23:00 07:00 Intake Total 840 ml 240 ml 240 ml Balance 840 ml 240 ml 240 ml Labs: Laboratory Tests Test 06/26/19 08:11 Glucose (Fingerstick) 137 mg/dL (70-99) H Current Medications: I have reviewed the current psychotropics carefully including drug interactions. Risk benefit ratio favors no change other than as noted in my dictated progress note. 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
--- NOTE | 2019-06-27 03:25 | NUR ---
Nursing Note The patient was located in the shower room for her assessment and medication pass. The patient was very interactive and appropriate during interactions with this nurse and other staff. The patient took her medication whole. The patient is currently sleeping in her room.
[2019-06-27 06:23] VITALS: BP 105/68
[2019-06-27] MEDS: DIVALPROEX 125 MG CAP.SPRINK PO SCH ×4 (08:34→20:00)
[2019-06-27] MEDS: hydroCHLOROthiazide 25 MG TABLET PO SCH (08:34)
[2019-06-27] MEDS: metFORMIN 500 MG TABLET PO SCH ×2 (08:34→17:08)
[2019-06-27] MEDS: amLODIPine BESYLATE 5 MG TABLET PO SCH (08:37)
[2019-06-27] MEDS: SERTRALINE 25 MG TABLET. PO SCH (08:38)
[2019-06-27] MEDS: HYDROCORTISONE 1% LOTION BOTTLE. TP SCH ×3 (08:38→20:00)
[2019-06-27] MEDS: METOPROLOL SUCC 24HR ER 25 MG TAB.ER.24H. PO SCH (08:38)
[2019-06-27] MEDS: CYANOCOBALAMIN (VITAMIN B-12) 1,000 MCG/ML VIAL IM SCH (08:38)
[2019-06-27] MEDS: LISINOPRIL 20 MG TABLET PO SCH (08:38)
[2019-06-27] MEDS: TAMOXIFEN 10 MG TABLET PO SCH (08:41)
[2019-06-27] MEDS: NYSTATIN TOPICAL POWDER 15GM BOTTLE. TP SCH ×2 (09:00→20:00)
--- NOTE | 2019-06-27 09:10 | NUR ---
She is compliant with her medications and assessment. Pt is calm, cooperative, and compliant. No agitation, no aggression, no hallucinations, no delusions.
[2019-06-27 15:17] LABS: BACTERIA,URINE MANY /HPF (0-FEW); BILIRUBIN,URINE NEG (NEG); CLARITY,URINE TURBID; COLOR,URINE YELLOW; GLUCOSE,URINE NEG (NEG); NITRITE,URINE NEG (NEG); SQUAMOUS EPITHELIAL CELL,UR FEW /LPF; UROBILINOGEN,URINE 0.2 mg/dL (0.2 mg/dL)
[2019-06-27 15:48] VITALS: BP 116/68
[2019-06-27] MEDS: traZODone 50 MG TABLET. PO SCH (20:00)
[2019-06-27] MEDS: LATANOPROST 0.005% OPHTH SOLUTION 2.5ML BOTTLE. OD SCH (20:00)
[2019-06-27] MEDS: ATORVASTATIN CALCIUM 10 MG TABLET. PO SCH (20:01)
--- NOTE | 2019-06-27 21:23 | NUR ---
Patient is in the day room on assumption of care. She is pleasant, interactive and appropriate with peers and staff. Compliant with medications and assessments. No agitation. Denies any pain or discomfort. Denies SI.
--- NOTE | 2019-06-27 22:02 | PN ---
DATE: 06/26/2019 PSYCHIATRIC PROGRESS NOTE This late entry 06/26/2019 covers the elements not covered in my initial note. SUBJECTIVE: I met with the patient in the evening of 06/26/2019. Per MARISOL Tai, the patient slept 5-1/4 hours previous night. She has been in a better mood per nursing report, joking and appropriate. REVIEW OF SYSTEMS: Ambulation impaired, in wheelchair. No CV, , pulmonary, eye system symptoms on review. MENTAL STATUS EXAM: Oriented to herself and situation. Speech is coherent, rapid at times. Abstraction fair, computation impaired, language function intact, attention span short. Mood and affect somewhat anxious, labile at times, but improving. LABORATORY DATA: Reviewed. 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 PLAN: Continue psychotropics from initial note, Depakote Sprinkles are being increased to 125 mg 4 times a day. Repeat labs and valproic acid level to reach therapeutic level. Continue trazodone at bedtime, Zoloft 75 mg a day, Zyprexa p.r.n. OSKAR STEPHENSON MD DR: JORDAN/ember JOB#: [id number] / [id number]
--- NOTE | 2019-06-27 22:08 | PN ---
DATE: 06/25/2019 This late entry, 06/24, covers elements not covered in my initial note. SUBJECTIVE: I met with the patient evening of 06/24. Per MARISOL Serrano, the patient slept 6-1/4 hours previous night. She has been somewhat obsessive, wanting to go to the toilet to urinate very frequently even more than her scheduled and part of this seems to be her anxiety. We have initiated a behavior modification protocol with a ticket for her q. 2 hours as discussed at treatment team meeting and this seems to help somewhat. REVIEW OF SYSTEMS: Ambulation impaired, in wheelchair. No CV, , pulmonary, eye system symptoms on review. MENTAL STATUS EXAM: Oriented to herself and situation. Speech is coherent, somewhat rapid at times. Abstraction fair, computation impaired, language function intact, attention span short. Mood and affect remain somewhat anxious, labile. LABORATORY DATA: Reviewed. IMPRESSION: Unchanged from initial note. PLAN: No change from initial note. OSKAR STEPHENSON MD DR: JORDAN/ember JOB#: [id number] / [id number]
--- NOTE | 2019-06-27 22:37 | PDOC ---
Exam Note: Phillip Note: Please also refer to the separate dictated note~for this date of service dictated separately.~Patient seen individually. Discussed the patient with Nursing staff reviewed the chart.~Reviewed interim history and current functioning. Reviewed vital signs,~Labs/ Radiology~and current medications noted below. Continue current treatment with the changes noted in the dictated addendum note Assessment: Vital Signs/I&O: Vital Signs Date Time Temp Pulse Resp B/P (MAP) Pulse Ox O2 Delivery O2 Flow Rate FiO2 06/27/19 15:48 97.6 87 18 116/68 (84) 97 06/24/19 06:10 Room Air I & O 06/26/19 06/26/19 06/27/19 15:00 23:00 07:00 Intake Total 720 ml 360 ml 120 ml Balance 720 ml 360 ml 120 ml Labs: Laboratory Tests Test 06/27/19 14:11 Urine Collection Type Unknown Urine Color Yellow Urine Clarity Turbid Urine pH 5.5 Urine Specific [place] 1.025 Urine Protein Neg (NEG-TRACE) Urine Glucose (UA) Neg mg/dL (NEG) Urine Ketones (Stick) 15 mg/dL (NEG) Urine Blood Small (NEG) Urine Nitrite Neg (NEG) Urine Bilirubin Neg (NEG) Urine Urobilinogen Dipstick 0.2 mg/dL (0.2 mg/dL) Urine Leukocyte Esterase Small (NEG) Urine RBC 6-10 /HPF (0-2) Urine WBC 1-4 /HPF (0-4) Urine Squamous Epithelial Cells Few /LPF Urine Bacteria Many /HPF (0-FEW) Urine Mucus Slight /LPF Current Medications: I have reviewed the current psychotropics carefully including drug interactions. Risk benefit ratio favors no change other than as noted in my dictated progress note. 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
[2019-06-28 06:21] VITALS: BP 132/76
[2019-06-28 07:40] LABS: BASO % 0 % (0-3); EOS # 0.1 x10^3/uL (0.0-0.7); EOS % 2 % (0-3); HEMATOCRIT 33.9 % (36.0-47.0); HEMOGLOBIN 10.8 g/dL (12.0-15.5); LYMPH # 2.2 x10^3/uL (1.0-4.8); LYMPH % 34 % (24-48); MEAN CORPUSCULAR HEMOGLOBIN 26 pg (25-35); MEAN CORPUSCULAR HGB CONC 32 g/dL (31-37); MEAN CORPUSCULAR VOLUME 81 fL (79-100); MONO # 0.5 x10^3/uL (0.0-1.1); MONO % 7 % (0-9); NEUT # 3.7 x10^3uL (1.8-7.7); NEUT % 57 % (31-73); PLATELET COUNT 192 x10^3/uL (140-400); RED BLOOD COUNT 4.18 x10^6/uL (3.50-5.40); RED CELL DISTRIBUTION WIDTH 14.6 % (11.5-14.5); WHITE BLOOD COUNT 6.5 x10^3/uL (4.0-11.0)
[2019-06-28 08:02] LABS: ALBUMIN 2.9 g/dL (3.4-5.0); ALBUMIN/GLOBULIN RATIO 0.9 (1.0-1.7); ALK PHOS 46 U/L (46-116); ALT (SGPT) 35 U/L (14-59); ANION GAP 7 (6-14); AST (SGOT) 22 U/L (15-37); BLOOD UREA NITROGEN 25 mg/dL (7-20); BUN/CREATININE RATIO 42 (6-20); CALCIUM 8.7 mg/dL (8.5-10.1); CARBON DIOXIDE 29 mmol/L (21-32); CHLORIDE 104 mmol/L (98-107); CREATININE 0.6 mg/dL (0.6-1.0); GFR 100.6; GLUCOSE 141 mg/dL (70-99); POTASSIUM 4.5 mmol/L (3.5-5.1); SODIUM 140 mmol/L (136-145); TOTAL BILIRUBIN 0.1 mg/dL (0.2-1.0); TOTAL PROTEIN 6.1 g/dL (6.4-8.2)
[2019-06-28 08:32] LABS: VAL ACID 44 mcg/mL (50-100)
[2019-06-28] MEDS: hydroCHLOROthiazide 25 MG TABLET PO SCH (08:34)
[2019-06-28] MEDS: DIVALPROEX 125 MG CAP.SPRINK PO SCH ×4 (08:34→20:50)
[2019-06-28] MEDS: metFORMIN 500 MG TABLET PO SCH ×2 (08:34→17:03)
[2019-06-28] MEDS: amLODIPine BESYLATE 5 MG TABLET PO SCH (08:35)
[2019-06-28] MEDS: TAMOXIFEN 10 MG TABLET PO SCH (08:35)
[2019-06-28] MEDS: LISINOPRIL 20 MG TABLET PO SCH (08:35)
[2019-06-28] MEDS: METOPROLOL SUCC 24HR ER 25 MG TAB.ER.24H. PO SCH (08:36)
[2019-06-28] MEDS: NYSTATIN TOPICAL POWDER 15GM BOTTLE. TP SCH ×2 (08:36→20:50)
[2019-06-28] MEDS: SERTRALINE 25 MG TABLET. PO SCH (08:36)
[2019-06-28] MEDS: HYDROCORTISONE 1% LOTION BOTTLE. TP SCH ×3 (08:36→20:49)
--- NOTE | 2019-06-28 10:19 | NUR ---
She is compliant with her medications and assessment. No agitation, no aggression, no hallucinations, no delusions. Pt is calm, cooperative, and compliant.
[2019-06-28 16:13] VITALS: BP 95/65
--- NOTE | 2019-06-28 20:33 | PN ---
DATE: 06/27/2019 This late entry 06/27/2019 covers elements not covered in my initial note. SUBJECTIVE: I met with the patient in the evening. The patient slept for 3/4 hours previous night per MARISOL Winston. She was socializing previous evening, somewhat obsessive about restroom, wanting to go there frequently despite toileting schedule. UTI is positive. Culture awaited, but she has been appropriate complementing staff for helping her. REVIEW OF SYSTEMS: Ambulation impaired, in wheelchair. No CV, , pulmonary, eye system symptoms on review, does complain of frequency of urination. MENTAL STATUS EXAM: Oriented to herself and situation. Speech is coherent, rapid at times. Abstraction fair, computation impaired, language function intact. Mood and affect is showing improvement, less lability. LABORATORY DATA: Reviewed. She talked about wanting to go back to [facility] and that is the plan post-discharge. IMPRESSION: Unchanged from initial note. PLAN: No change from initial note. Treat the UTI if culture positive. OSKAR STEPHENSON MD DR: JORDAN/ember JOB#: [id number] / [id number]
[2019-06-28] MEDS: traZODone 50 MG TABLET. PO SCH (20:50)
[2019-06-28] MEDS: LATANOPROST 0.005% OPHTH SOLUTION 2.5ML BOTTLE. OD SCH (20:50)
[2019-06-28] MEDS: ATORVASTATIN CALCIUM 10 MG TABLET. PO SCH (20:50)
--- NOTE | 2019-06-28 21:44 | PDOC ---
Exam Note: Phillip Note: Please also refer to the separate dictated note~for this date of service dictated separately.~Patient seen individually. Discussed the patient with Nursing staff reviewed the chart.~Reviewed interim history and current functioning. Reviewed vital signs,~Labs/ Radiology~and current medications noted below. Continue current treatment with the changes noted in the dictated addendum note Assessment: Vital Signs/I&O: Vital Signs Date Time Temp Pulse Resp B/P (MAP) Pulse Ox O2 Delivery O2 Flow Rate FiO2 06/28/19 16:13 98.1 102 18 95/65 (75) 97 06/24/19 06:10 Room Air I & O 06/27/19 06/27/19 06/28/19 15:00 23:00 07:00 Intake Total 460 ml 360 ml 120 ml Balance 460 ml 360 ml 120 ml Labs: Laboratory Tests Test 06/28/19 07:20 06/28/19 07:25 White Blood Count 6.5 x10^3/uL (4.0-11.0) Red Blood Count 4.18 x10^6/uL (3.50-5.40) Hemoglobin 10.8 g/dL (12.0-15.5) L Hematocrit 33.9 % (36.0-47.0) L Mean Corpuscular Volume 81 fL (79-100) Mean Corpuscular Hemoglobin 26 pg (25-35) Mean Corpuscular Hemoglobin Concent 32 g/dL (31-37) Red Cell Distribution Width 14.6 % (11.5-14.5) H Platelet Count 192 x10^3/uL (140-400) Neutrophils (%) (Auto) 57 % (31-73) Lymphocytes (%) (Auto) 34 % (24-48) Monocytes (%) (Auto) 7 % (0-9) Eosinophils (%) (Auto) 2 % (0-3) Basophils (%) (Auto) 0 % (0-3) Neutrophils # (Auto) 3.7 x10^3uL (1.8-7.7) Lymphocytes # (Auto) 2.2 x10^3/uL (1.0-4.8) Monocytes # (Auto) 0.5 x10^3/uL (0.0-1.1) Eosinophils # (Auto) 0.1 x10^3/uL (0.0-0.7) Basophils # (Auto) 0.0 x10^3/uL (0.0-0.2) Sodium Level 140 mmol/L (136-145) Potassium Level 4.5 mmol/L (3.5-5.1) Chloride Level 104 mmol/L (98-107) Carbon Dioxide Level 29 mmol/L (21-32) Anion Gap 7 (6-14) Blood Urea Nitrogen 25 mg/dL (7-20) H Creatinine 0.6 mg/dL (0.6-1.0) Estimated GFR (Cockcroft-Gault) 100.6 BUN/Creatinine Ratio 42 (6-20) H Glucose Level 141 mg/dL (70-99) H Calcium Level 8.7 mg/dL (8.5-10.1) Total Bilirubin 0.1 mg/dL (0.2-1.0) L Aspartate Amino Transferase (AST) 22 U/L (15-37) Alanine Aminotransferase (ALT) 35 U/L (14-59) Alkaline Phosphatase 46 U/L (46-116) Ammonia < 10 mcmol/L (11-34) L Total Protein 6.1 g/dL (6.4-8.2) L Albumin 2.9 g/dL (3.4-5.0) L Albumin/Globulin Ratio 0.9 (1.0-1.7) L Valproic Acid Level 44 mcg/mL (50-100) L Valproic Acid Last Dose Date 06/27/19 Valproic Acid Last Dose Time 2100 Glucose (Fingerstick) 138 mg/dL (70-99) H Current Medications: Meds: Current Medications Medications (Trade) Dose Ordered Sig/Antoinette Route PRN Reason Start Time Stop Time Status Last Admin Dose Admin Divalproex Sodium (Depakote Sprinkles) 250 mg QID PO 06/28/19 21:00 06/28/19 20:50 I have reviewed the current psychotropics carefully including drug interactions. Risk benefit ratio favors no change other than as noted in my dictated progress note. 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
[2019-06-28] MEDS: HYDROcodone/APAP 5/325MG 1 TAB TABLET PO PRN (22:32)
--- NOTE | 2019-06-28 23:29 | NUR ---
Nursing Note Pt pleasant calm and cooperative, is very complimentary of my hair, and looks. States she loves how beautiful [place] women are and how jealous she is of our culture and looks. PT compliant and cooperative with meds and assessment along with lortab for pain in her left leg.
--- NOTE | 2019-06-28 23:38 | NUR ---
Nursing Note Pt alarm going off, pt needing to use the commode, pt gets upset saying she is in pain, that she stood in the grass for 6 hours today waiting for them to do something. Pt is delusional, requires 2 staff for transfers secondary to weak LE from childhood polio. Lortab was given shortly prior to this.
[2019-06-29 06:24] VITALS: BP 92/61
[2019-06-29] MEDS: HYDROCORTISONE 1% LOTION BOTTLE. TP SCH ×3 (07:02→20:15)
[2019-06-29] MEDS: DIVALPROEX 125 MG CAP.SPRINK PO SCH ×4 (07:03→20:16)
[2019-06-29] MEDS: metFORMIN 500 MG TABLET PO SCH ×2 (07:03→17:27)
[2019-06-29] MEDS: SERTRALINE 25 MG TABLET. PO SCH (07:03)
[2019-06-29] MEDS: TAMOXIFEN 10 MG TABLET PO SCH (07:05)
[2019-06-29] MEDS: NYSTATIN TOPICAL POWDER 15GM BOTTLE. TP SCH ×2 (07:06→20:16)
[2019-06-29] MEDS: LISINOPRIL 20 MG TABLET PO SCH (07:06)
[2019-06-29] MEDS: METOPROLOL SUCC 24HR ER 25 MG TAB.ER.24H. PO SCH (07:06)
[2019-06-29] MEDS: amLODIPine BESYLATE 5 MG TABLET PO SCH (07:07)
[2019-06-29] MEDS: hydroCHLOROthiazide 25 MG TABLET PO SCH (07:07)
--- NOTE | 2019-06-29 12:24 | NUR ---
Nursing Note Pt pleasant, and compliant with cares and meds. No c/o pain. Denies SI and no aggression.
[2019-06-29 16:05] VITALS: BP 127/79
--- NOTE | 2019-06-29 19:39 | PN ---
DATE: 06/28/2019 PSYCHIATRIC PROGRESS NOTE This late entry 06/28/2019 covers elements not covered in my initial note. SUBJECTIVE: I met with the patient in the evening. Per Jessica RN, the patient slept 6-3/4 hours previous night. She has had a better day. Valproic acid level 44, on Depakote Sprinkles 250 twice a day, 125 twice a day and we will increase to 250, 4 times a day. Check CBC, CMP, valproic acid level in 3 days. She is assisting staff and is better during sit to stand. REVIEW OF SYSTEMS: Ambulation impaired, in wheelchair. No CV, , pulmonary, eye system symptoms on review. MENTAL STATUS EXAM: Oriented to herself and situation. She talked to me 2 or 3 different times on rounds today. Speech is coherent, can be rapid at times. Abstraction fair, computation impaired, language function intact, attention span short. Mood and affect anxious, labile, but less so than before. LABORATORY DATA: Reviewed. IMPRESSION: Major depressive disorder in partial remission, impulse control disorder; anxiety disorder, unspecified. PLAN: Increase Depakote as above. Continue Zoloft, trazodone along with Zyprexa p.r.n. Rest unchanged for now. OSKAR STEPHENSON MD DR: JORDAN/ember JOB#: [id number] / [id number]
[2019-06-29] MEDS: traZODone 50 MG TABLET. PO SCH (20:16)
[2019-06-29] MEDS: ATORVASTATIN CALCIUM 10 MG TABLET. PO SCH (20:16)
[2019-06-29] MEDS: LATANOPROST 0.005% OPHTH SOLUTION 2.5ML BOTTLE. OD SCH (20:16)
--- NOTE | 2019-06-29 21:41 | PDOC ---
Exam Note: Phillip Note: Please also refer to the separate dictated note~for this date of service dictated separately.~Patient seen individually. Discussed the patient with Nursing staff reviewed the chart.~Reviewed interim history and current functioning. Reviewed vital signs,~Labs/ Radiology~and current medications noted below. Continue current treatment with the changes noted in the dictated addendum note Assessment: Vital Signs/I&O: Vital Signs Date Time Temp Pulse Resp B/P (MAP) Pulse Ox O2 Delivery O2 Flow Rate FiO2 06/29/19 16:05 97.9 88 18 127/79 (95) 91 06/24/19 06:10 Room Air I & O 06/28/19 06/28/19 06/29/19 15:00 23:00 07:00 Intake Total 480 ml 480 ml Balance 480 ml 480 ml Labs: Laboratory Tests Test 06/29/19 07:31 Glucose (Fingerstick) 128 mg/dL (70-99) H Current Medications: I have reviewed the current psychotropics carefully including drug interactions. Risk benefit ratio favors no change other than as noted in my dictated progress note. 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
[2019-06-29] MEDS: HYDROcodone/APAP 5/325MG 1 TAB TABLET PO PRN (21:42)
--- NOTE | 2019-06-29 22:48 | NUR ---
Nursing Note Pt pleasant and cooperative, complains of pain to lle, lortab given. Pt is very complimentary of staff. States [place] women are beautiful and nice with pretty skin. Helped patient change her pants,and she was much more helpful with her transfers and standing than yesterday. Able to bear weight some and hold herself up standing.
[2019-06-30 06:23] VITALS: BP 105/71
[2019-06-30] MEDS: SERTRALINE 25 MG TABLET. PO SCH (08:16)
[2019-06-30] MEDS: LISINOPRIL 20 MG TABLET PO SCH (08:16)
[2019-06-30] MEDS: hydroCHLOROthiazide 25 MG TABLET PO SCH (08:16)
[2019-06-30] MEDS: metFORMIN 500 MG TABLET PO SCH ×2 (08:17→17:26)
[2019-06-30] MEDS: DIVALPROEX 125 MG CAP.SPRINK PO SCH ×4 (08:17→20:23)
[2019-06-30] MEDS: HYDROCORTISONE 1% LOTION BOTTLE. TP SCH ×3 (08:18→20:22)
[2019-06-30] MEDS: TAMOXIFEN 10 MG TABLET PO SCH (08:18)
[2019-06-30] MEDS: NYSTATIN TOPICAL POWDER 15GM BOTTLE. TP SCH ×2 (08:19→20:24)
[2019-06-30] MEDS: METOPROLOL SUCC 24HR ER 25 MG TAB.ER.24H. PO SCH (12:12)
[2019-06-30] MEDS: amLODIPine BESYLATE 5 MG TABLET PO SCH (12:12)
--- NOTE | 2019-06-30 12:20 | PN ---
DATE: 06/29/2019 PSYCHIATRIC PROGRESS NOTE This late entry 06/29/2019 covers the elements not covered in my initial note. SUBJECTIVE: I met with the patient evening of 06/29/2019. Per MARISOL Blake, the patient slept 6-1/2 hours previous night. She has been pleasant, interactive, appropriate. She uses certain profanities, but that seems more cultural and developmental rather than anything more aggressive. REVIEW OF SYSTEMS: Ambulation impaired, in wheelchair. No CV, , pulmonary, eye system symptoms on review. MENTAL STATUS EXAM: Oriented to herself and situation. Speech is coherent, a little pressured at times. Abstraction fair, computation impaired, language function intact, attention span short. Mood and affect somewhat anxious, labile, but improved. LABORATORY DATA: Reviewed. 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 Rest unchanged. Impulse control disorder. PLAN: No change from initial note. She is doing well despite slightly subtherapeutic level of Depakote at 44. We will maintain this together with Zoloft, trazodone for now and Zyprexa p.r.n. OSKAR STEPHENSON MD DR: JORDAN/ember JOB#: [id number] / [id number]
[2019-06-30] MEDS: ACETAMINOPHEN 325 MG TABLET PO PRN (13:30)
--- NOTE | 2019-06-30 13:49 | NUR ---
Pt calm and compliant with meds and assessment. Pleasant and interactive with staff and other pts.
[2019-06-30 15:39] VITALS: BP 110/72
[2019-06-30] MEDS: traZODone 50 MG TABLET. PO SCH (20:23)
[2019-06-30] MEDS: ATORVASTATIN CALCIUM 10 MG TABLET. PO SCH (20:23)
[2019-06-30] MEDS: LATANOPROST 0.005% OPHTH SOLUTION 2.5ML BOTTLE. OD SCH (20:24)
--- NOTE | 2019-06-30 21:52 | PDOC ---
Exam Note: Phillip Note: Please also refer to the separate dictated note~for this date of service dictated separately.~Patient seen individually. Discussed the patient with Nursing staff reviewed the chart.~Reviewed interim history and current functioning. Reviewed vital signs,~Labs/ Radiology~and current medications noted below. Continue current treatment with the changes noted in the dictated addendum note Assessment: Vital Signs/I&O: Vital Signs Date Time Temp Pulse Resp B/P (MAP) Pulse Ox O2 Delivery O2 Flow Rate FiO2 06/30/19 15:39 97.4 96 18 110/72 (85) 95 I & O 06/29/19 06/29/19 06/30/19 15:00 23:00 07:00 Intake Total 1080 ml 360 ml Balance 1080 ml 360 ml Labs: Laboratory Tests Test 06/30/19 07:31 Glucose (Fingerstick) 132 mg/dL (70-99) H Current Medications: I have reviewed the current psychotropics carefully including drug interactions. Risk benefit ratio favors no change other than as noted in my dictated progress note. 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
--- NOTE | 2019-06-30 23:56 | NUR ---
Nursing Note Pt pleasant cooperative and compliant. Very complimentary of staff, smiles on approach, tells me she loves to cook and will make me encinas spiced chicken. Talks at length about how she thinks her skin is ugly and brown, told her she is beautiful and that her skin is fine, that she has nice coloring. Pt states she loves [place] woemen that we are strong and independent. Anxious for d/c friday.
[2019-07-01 08:00] VITALS: BP 91/60
[2019-07-01] MEDS: LISINOPRIL 20 MG TABLET PO SCH (08:34)
[2019-07-01] MEDS: METOPROLOL SUCC 24HR ER 25 MG TAB.ER.24H. PO SCH (08:34)
[2019-07-01] MEDS: amLODIPine BESYLATE 5 MG TABLET PO SCH (08:35)
[2019-07-01] MEDS: hydroCHLOROthiazide 25 MG TABLET PO SCH (08:35)
[2019-07-01] MEDS: TAMOXIFEN 10 MG TABLET PO SCH (08:36)
[2019-07-01] MEDS: NYSTATIN TOPICAL POWDER 15GM BOTTLE. TP SCH ×2 (08:37→20:18)
[2019-07-01] MEDS: SERTRALINE 25 MG TABLET. PO SCH (08:37)
[2019-07-01] MEDS: DIVALPROEX 125 MG CAP.SPRINK PO SCH ×4 (08:37→20:19)
[2019-07-01] MEDS: HYDROCORTISONE 1% LOTION BOTTLE. TP SCH ×3 (08:37→20:18)
[2019-07-01] MEDS: metFORMIN 500 MG TABLET PO SCH ×2 (08:37→17:06)
--- NOTE | 2019-07-01 09:04 | NUR ---
Nursing Note Pt pleasant, compliant with meds and assessment. Pt expressed her excitement d/c tomorrow. No aggression. No agitation. Held BP meds due to low BP.
--- NOTE | 2019-07-01 09:57 | NUR ---
WEEKLY ACTIVITY THERAPY NOTE Date of Admission: 06/13/2019 Date of AT Assessment: 06/16/2019 Goal aimed: to increase engagement and socialization Initial goal: Pt. will participate in three Activity Therapy groups per week. Weekly progress towards goal: exceeded, 10/21 Group participation level: 1 min, 6 full Weekly highlights: fishing on Friday afternoon when initially resistive Behaviors observed: increased engagement this week, more willing to participate, wandering at times still, responds with "bloody hell" often, compliments staff often Plan: no change to goal at this time Beneficial adaptations: direct prompting
--- NOTE | 2019-07-01 11:17 | NUR ---
LUPE contacted pt. [id number], Royce, to let her know pt. would be discharging on 07/02/2019. LUPE contacted INDIRA Meléndez at [facility], to give her an update on pt. progress. Rika did state pt. Zyprexa Zydis PRN will need to be discontinued in order for pt. to return. ULPE passed this information on to pt. nurse to relay to the doctor. LUPE faxed updated pt. notes in preparation of discharge scheduled for 07/02/2019.
--- NOTE | 2019-07-01 11:47 | NUR ---
[facility] Social Work Discharge Planning Form Patient Name KIMANI LIN Admit Date: 06/13/2019 DISCHARGE PLAN Discharge Destination: [facility] Care Assessment: NA Level II Assessment: NA Transportation: [facility] to transport pt. on 07/02/2019 pick and shovel worker time TBD. Special Instructions/Notes: Please fax discharge paperwork and medication list. DISCHARGE TO FACILITY Facility: [facility] Address: [address] [place] [id number] Contact Name: INDIRA Meléndez Contact Name: NAILA Avendaño PCP: Dr. Dunn Psychiatrist: [facility]
[2019-07-01 16:27] VITALS: BP 102/62
[2019-07-01] MEDS: LATANOPROST 0.005% OPHTH SOLUTION 2.5ML BOTTLE. OD SCH (20:18)
[2019-07-01] MEDS: traZODone 50 MG TABLET. PO SCH (20:18)
[2019-07-01] MEDS: ATORVASTATIN CALCIUM 10 MG TABLET. PO SCH (20:19)
--- NOTE | 2019-07-01 21:44 | PDOC ---
Exam Note: Phillip Note: Please also refer to the separate dictated note~for this date of service dictated separately.~Patient seen individually. Discussed the patient with Nursing staff reviewed the chart.~Reviewed interim history and current functioning. Reviewed vital signs,~Labs/ Radiology~and current medications noted below. Continue current treatment with the changes noted in the dictated addendum note Assessment: Vital Signs/I&O: Vital Signs Date Time Temp Pulse Resp B/P (MAP) Pulse Ox O2 Delivery O2 Flow Rate FiO2 07/01/19 16:27 97.7 94 18 102/62 (75) 95 I & O 06/30/19 06/30/19 07/01/19 15:00 23:00 07:00 Intake Total 960 ml 360 ml Balance 960 ml 360 ml Labs: Laboratory Tests Test 07/01/19 07:20 Glucose (Fingerstick) 128 mg/dL (70-99) H Current Medications: I have reviewed the current psychotropics carefully including drug interactions. Risk benefit ratio favors no change other than as noted in my dictated progress note. 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
--- NOTE | 2019-07-01 22:00 | NUR ---
Patient is at the nurses station window on assumption of care, asking to use the bathroom. Per toileting schedule, patient assisted to the bathroom by 2 staff members. She is pleasant, social, interactive and appropriate with peers and staff. Did become slightly demanding in the day room, but was redirectable. She was compliant with assessments and medications taken whole. No agitation. No complaints of pain or discomfort. Denies SI.
[2019-07-02] MEDS ORDERED: ACET325T21 PO (02:50)
[2019-07-02] MEDS ORDERED: CHOL500062 PO (02:53)
[2019-07-02] MEDS ORDERED: CYAN10002 IM (02:54)
[2019-07-02] MEDS ORDERED: DIVA125C3 PO (02:58)
[2019-07-02] MEDS ORDERED: HYDR28GE TP (03:00)
[2019-07-02] MEDS ORDERED: HYDR-2155 PO (03:02)
[2019-07-02] MEDS ORDERED: MAG-115 PO (03:05)
[2019-07-02] MEDS ORDERED: MAGN24003 PO (03:06)
[2019-07-02] MEDS ORDERED: METH57CR17 TP (03:07)
[2019-07-02] MEDS ORDERED: NYST15PO9 TP (03:08)
[2019-07-02] MEDS ORDERED: TRAZ-120 PO ×2 (03:10)
[2019-07-02 05:26] VITALS: BP 115/74
[2019-07-02 07:26] LABS: BASO % 0 % (0-3); EOS # 0.1 x10^3/uL (0.0-0.7); EOS % 1 % (0-3); HEMATOCRIT 33.3 % (36.0-47.0); HEMOGLOBIN 10.6 g/dL (12.0-15.5); LYMPH # 2.2 x10^3/uL (1.0-4.8); LYMPH % 32 % (24-48); MEAN CORPUSCULAR HEMOGLOBIN 26 pg (25-35); MEAN CORPUSCULAR HGB CONC 32 g/dL (31-37); MEAN CORPUSCULAR VOLUME 81 fL (79-100); MONO # 0.5 x10^3/uL (0.0-1.1); MONO % 8 % (0-9); NEUT # 4.1 x10^3uL (1.8-7.7); NEUT % 59 % (31-73); PLATELET COUNT 182 x10^3/uL (140-400); RED BLOOD COUNT 4.11 x10^6/uL (3.50-5.40); RED CELL DISTRIBUTION WIDTH 14.8 % (11.5-14.5); WHITE BLOOD COUNT 6.9 x10^3/uL (4.0-11.0)
[2019-07-02 07:40] LABS: ALBUMIN 2.8 g/dL (3.4-5.0); ALBUMIN/GLOBULIN RATIO 0.9 (1.0-1.7); ALK PHOS 51 U/L (46-116); ALT (SGPT) 39 U/L (14-59); ANION GAP 7 (6-14); AST (SGOT) 24 U/L (15-37); BLOOD UREA NITROGEN 30 mg/dL (7-20); BUN/CREATININE RATIO 43 (6-20); CALCIUM 8.6 mg/dL (8.5-10.1); CARBON DIOXIDE 30 mmol/L (21-32); CHLORIDE 103 mmol/L (98-107); CREATININE 0.7 mg/dL (0.6-1.0); GFR 84.2; GLUCOSE 136 mg/dL (70-99); POTASSIUM 4.6 mmol/L (3.5-5.1); SODIUM 140 mmol/L (136-145); TOTAL BILIRUBIN 0.1 mg/dL (0.2-1.0); TOTAL PROTEIN 5.9 g/dL (6.4-8.2)
[2019-07-02 07:48] LABS: VAL ACID 47 mcg/mL (50-100)
[2019-07-02] MEDS: TAMOXIFEN 10 MG TABLET PO SCH (09:42)
[2019-07-02] MEDS: HYDROCORTISONE 1% LOTION BOTTLE. TP SCH (09:43)
[2019-07-02] MEDS: LISINOPRIL 20 MG TABLET PO SCH (09:44)
[2019-07-02] MEDS: SERTRALINE 25 MG TABLET. PO SCH (09:44)
[2019-07-02] MEDS: METOPROLOL SUCC 24HR ER 25 MG TAB.ER.24H. PO SCH (09:44)
[2019-07-02 09:45] VITALS: BP 115/74
[2019-07-02] MEDS: NYSTATIN TOPICAL POWDER 15GM BOTTLE. TP SCH (09:45)
[2019-07-02] MEDS: DIVALPROEX 125 MG CAP.SPRINK PO SCH (09:45)
[2019-07-02] MEDS: hydroCHLOROthiazide 25 MG TABLET PO SCH (09:45)
[2019-07-02] MEDS: metFORMIN 500 MG TABLET PO SCH (09:45)
[2019-07-02] MEDS: amLODIPine BESYLATE 5 MG TABLET PO SCH (09:45)
--- NOTE | 2019-07-02 10:57 | NUR ---
Transition Record was faxed to follow-up provider with the following elements: Reason for admission, procedures, tests, principal diagnosis, pending studies, patient instructions, 11/11 contact information for unit, phone number to obtain pending test results, plan for follow-up care, physician follow-up, advanced directive information, and medication list with dose, duration and instructions. This information was included in the following documents: History and physical, lab results, study results, progress notes, social work planning form, DC instruction form, patient visit summary, and medication reconciliation form. Date & time record faxed: 07/02/19 @0357 Record faxed to: Mk Ayers Record discussed with/ report given to: katina Benito
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
--- NOTE | 2019-07-02 20:35 | PN ---
DATE: 07/01/2019 PSYCHIATRIC PROGRESS NOTE. This late entry of 07/01/2019 covers the elements not covered in my initial note. SUBJECTIVE: I met with the patient in the evening and staffed at a treatment team meeting with the entire team in the morning. Appetite 100%, sleeping average 6 hours. Complains of pain in left leg, had an x-ray, no fracture noted. Compliant with meds and care. UA was mixed johnathan. REVIEW OF SYSTEMS: Ambulation impaired, in wheelchair. No CV, , pulmonary, eye system symptoms on review. MENTAL STATUS EXAM: Oriented to herself and situation. Speech coherent, a little pressured at times. Abstraction fair, computation impaired, language function intact, attention span short. Mood and affect less labile. LABORATORY DATA: Reviewed. IMPRESSION: Unchanged from initial note. PLAN: No change from initial note. MAN Darby STEPHENSON MD DR: JORDAN/ember JOB#: [id number] / [id number]
--- NOTE | 2019-07-02 20:45 | PN ---
DATE: 06/30/2019 PSYCHIATRIC PROGRESS NOTE This late entry date of service 06/30/2019 covers elements not covered in my initial note. SUBJECTIVE: I met with the patient evening of 06/30/2019. Per MARISOL Larkin, patient slept 6-3/4 hours previous night. She has been doing reasonably well, less impulsive, less demeaning. REVIEW OF SYSTEMS: Ambulation impaired, in wheelchair. No CV, , pulmonary, eye system symptoms on review. MENTAL STATUS EXAM: Oriented to herself and situation. Speech coherent, a little rapid at times. Abstraction fair, computation impaired, language function intact. Mood and affect is improved. She was smiling quite affable as I met with her in the evening. LABORATORY DATA: Reviewed. IMPRESSION: Unchanged from initial note. PLAN: No change from initial note. MAN Darby STEPHENSON MD DR: JORDAN/ember JOB#: [id number] / [id number]
--- NOTE | 2019-07-02 21:38 | PDOC ---
Exam Note: Phillip Note: Please also refer to the separate dictated note~for this date of service dictated separately.~Patient seen individually. Discussed the patient with Nursing staff reviewed the chart.~Reviewed interim history and current functioning. Reviewed vital signs,~Labs/ Radiology~and current medications noted below. Continue current treatment with the changes noted in the dictated addendum note Assessment: Vital Signs/I&O: Vital Signs Date Time Temp Pulse Resp B/P (MAP) Pulse Ox O2 Delivery O2 Flow Rate FiO2 07/02/19 09:45 87 115/74 07/02/19 05:26 97.8 16 98 Room Air I & O 07/01/19 07/01/19 07/02/19 15:00 23:00 07:00 Intake Total 720 ml 600 ml Balance 720 ml 600 ml Labs: Laboratory Tests Test 07/02/19 07:05 07/02/19 08:14 White Blood Count 6.9 x10^3/uL (4.0-11.0) Red Blood Count 4.11 x10^6/uL (3.50-5.40) Hemoglobin 10.6 g/dL (12.0-15.5) L Hematocrit 33.3 % (36.0-47.0) L Mean Corpuscular Volume 81 fL (79-100) Mean Corpuscular Hemoglobin 26 pg (25-35) Mean Corpuscular Hemoglobin Concent 32 g/dL (31-37) Red Cell Distribution Width 14.8 % (11.5-14.5) H Platelet Count 182 x10^3/uL (140-400) Neutrophils (%) (Auto) 59 % (31-73) Lymphocytes (%) (Auto) 32 % (24-48) Monocytes (%) (Auto) 8 % (0-9) Eosinophils (%) (Auto) 1 % (0-3) Basophils (%) (Auto) 0 % (0-3) Neutrophils # (Auto) 4.1 x10^3uL (1.8-7.7) Lymphocytes # (Auto) 2.2 x10^3/uL (1.0-4.8) Monocytes # (Auto) 0.5 x10^3/uL (0.0-1.1) Eosinophils # (Auto) 0.1 x10^3/uL (0.0-0.7) Basophils # (Auto) 0.0 x10^3/uL (0.0-0.2) Sodium Level 140 mmol/L (136-145) Potassium Level 4.6 mmol/L (3.5-5.1) Chloride Level 103 mmol/L (98-107) Carbon Dioxide Level 30 mmol/L (21-32) Anion Gap 7 (6-14) Blood Urea Nitrogen 30 mg/dL (7-20) H Creatinine 0.7 mg/dL (0.6-1.0) Estimated GFR (Cockcroft-Gault) 84.2 BUN/Creatinine Ratio 43 (6-20) H Glucose Level 136 mg/dL (70-99) H Calcium Level 8.6 mg/dL (8.5-10.1) Total Bilirubin 0.1 mg/dL (0.2-1.0) L Aspartate Amino Transferase (AST) 24 U/L (15-37) Alanine Aminotransferase (ALT) 39 U/L (14-59) Alkaline Phosphatase 51 U/L (46-116) Ammonia < 10 mcmol/L (11-34) L Total Protein 5.9 g/dL (6.4-8.2) L Albumin 2.8 g/dL (3.4-5.0) L Albumin/Globulin Ratio 0.9 (1.0-1.7) L Valproic Acid Level 47 mcg/mL (50-100) L Valproic Acid Last Dose Date 06/28/19 Valproic Acid Last Dose Time 2100 Glucose (Fingerstick) 138 mg/dL (70-99) H Current Medications: I have reviewed the current psychotropics carefully including drug interactions. Risk benefit ratio favors no change other than as noted in my dictated progress note. 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
[2019-08-11] MEDS ORDERED: CYANOCOBALAMIN (VITAMIN B-12) 1,000 MCG/ML VIAL IM SCH (09:00)
== END 2019-07-02 10:45 | DRG 885 ==
LOC: ER 20:15 → GEROPSY 23:30
PROVIDERS: ADMIT Psychiatry & Neurology Psychiatry; ATTEND Psychiatry & Neurology Psychiatry
DX: F31.64 Bipolar disorder, current episode mixed, severe, with psychotic features (principal); F01.51 Vascular dementia, unspecified severity, with behavioral disturbance; F02.81 Dementia in other diseases classified elsewhere, unspecified severity, with behavioral disturbance; N39.0 Urinary tract infection, site not specified; G40.909 Epilepsy, unspecified, not intractable, without status epilepticus; F63.9 Impulse disorder, unspecified; F41.9 Anxiety disorder, unspecified; L40.9 Psoriasis, unspecified; G47.00 Insomnia, unspecified; Z66 Do not resuscitate; K21.9 Gastro-esophageal reflux disease without esophagitis; I10 Essential (primary) hypertension; K59.00 Constipation, unspecified; E11.9 Type 2 diabetes mellitus without complications; E78.5 Hyperlipidemia, unspecified; F60.3 Borderline personality disorder; Z98.2 Presence of cerebrospinal fluid drainage device; Z86.73 Personal history of transient ischemic attack (TIA), and cerebral infarction without residual deficits; Z85.3 Personal history of malignant neoplasm of breast; Z79.899 Other long term (current) drug therapy
CPT/HCPCS: 36415; 70450; 73610; 73630; 80053; 80061; 80164; 81001; 82140; 82306; 82607; 82947; 83036; 83540; 83550; 83735; 84436; 84443; 84480; 85025; 86592; 87086; 93005; J3420; 97535; 99285-25